=== PATIENT | female | born 1955 | race Caucasian/White ===

== ENCOUNTER 2017-03-23 08:49 | Inpatient (IN) ==
--- NOTE | 2017-03-23 09:46 | Cardiothoracic History & Phys ---
History of Present Illness Chief complaint: Chest pain History of present illness: Ms. Carrasco is a 61 year old female who was in her usual state of health until about 2 weeks ago. At that time she began to experience fairly typical symptoms of ischemic heart pain with exercise related chest discomfort and shortness of breath. She presented to [facility] were evaluation included cardiac catheterization which showed subtotal occlusion of a very large right coronary artery. Attempts at percutaneous intervention were unsuccessful and the patient was referred for bypass surgery. Left ventricular function is well preserved. Past medical history: Patient's past medical history is primarily been related to gout and osteoporosis. She also has had a question of diabetes mellitus which has been diet controlled. Otherwise she has been reasonably healthy. Family history includes history of cardiac disease on her mother side and actually her mother following heart surgery about 15 years ago. This was been done in [place] and included valvular heart surgery as well as coronary bypass. Review of systems is noncontributory to the present illness and the patient is a non-smoker. Physical examination: Patient is well-developed well-nourished white female in no acute distress. Examination of head eyes ears nose and throat show the pupils are equal and react to light and extraocular motions are intact. The oropharynx is benign. Examination of the neck shows no masses and there is no thyromegaly. There are no bruits. Examination chest is clear to percussion and auscultation. Examination of the heart shows normal sinus rhythm and there are no murmurs. Examination of the abdomen is soft and nontender and bowel sounds are normal and there are no masses or organomegaly. Examination extremities shows no cyanosis or edema. Neurological examination is grossly within normal limits. Assessment: Coronary artery disease. Plan: Coronary bypass surgery 03/27/2017.
[2017-03-23] MEDS ORDERED: GLUCAGON 1 MG VIAL IM PRN ×2 (09:47)
[2017-03-23] MEDS ORDERED: DEXTROSE 50% 25 GM/50 ML SYRINGE IV PRN (09:47)
[2017-03-23] MEDS ORDERED: DEXTROSE 50% 25 GM/50 ML VIAL IV PRN (09:47)
[2017-03-23] MEDS ORDERED: CETIRIZINE 10 MG TABLET PO PRN (09:57)
[2017-03-23] MEDS: GABAPENTIN 400 MG CAPSULE PO SCH ×2 (16:20→20:25)
[2017-03-23] MEDS: SODIUM CHLORIDE 0.9% 1,000 ML IV SCH (18:25)
[2017-03-23] MEDS: CITALOPRAM 20 MG TABLET PO SCH (20:25)
[2017-03-23] MEDS: CHLORHEXIDINE 0.12% ORAL RINSE 60 ML BOTTLE SWISH/SPIT SCH (20:26)
[2017-03-23] MEDS: ATORVASTATIN 10 MG TABLET PO SCH (20:26)
[2017-03-23] MEDS ORDERED: tiZANidine 4 MG TABLET PO PRN (21:00)
[2017-03-24 02:33] LABS: ABG Base Excess 4.6 MMOL/L (-2.5-2.5); ABG HCO3 28.5 MMOL/L (20-26); ABG Oxygen Saturation 96.1 % (95-100); ABG PCO2 44.5 MM HG (35-48); ABG PO2 81.1 MM HG (80-95)
[2017-03-24 05:02] LABS: Basophils # 0.1 10*3/uL (0.0-0.2); Basophils % 0.7 % (0.0-0.8); Eosinophils # 0.3 10*3/uL (0.0-0.87); Hematocrit 36.8 VOL% (35.7-47.0); Hemoglobin 12.5 GM/DL (12.0-16.0); Immature Granulocytes % 0.3 %; Immature Granulocytes Absolute 0.02 #; Lymphocytes # 1.3 10*3/uL (1.4-4.0); Lymphocytes % 19.1 % (21.3-54.2); Mean Corpuscular Hemoglobin 32 PG (27-34); Mean Corpuscular Volume 95.3 FL (87-102); Mean Platelet Volume 10.6 FL (9.6-12.0); Monocytes # 0.5 10*3/uL (0.11-0.8); Monocytes % 6.7 % (1.7-12.7); Neutrophils # 4.7 10*3/uL (1.4-7.4); Neutrophils % 69.2 % (38.7-73.9); Platelet Count 179 T/CUMM (130-400); Red Blood Count 3.86 MC/CUMM (3.8-5.5); Red Cell Distribution Width 11.9 % (9.3-17.3); White Blood Count 6.8 T/CUMM (4-12)
[2017-03-24 05:43] LABS: Albumin 3.1 G/DL (3.4-5.0); Bilirubin,Total 0.6 MG/DL (0.2-1.0); Calcium 8.7 MG/DL (8.5-10.1); Osmolality,Calculated 280.3 MOS/KG (273-304); Potassium 4.2 MMOL/L (3.5-5.1); Total Protein 6.4 G/DL (6.4-8.3)
--- NOTE | 2017-03-24 06:20 | Cardiothoracic Progress Note ---
Cardiothoracic Subjective Interval history: Patient is pain-free. Vital signs are stable and she is breathing comfortably. She is prepared for surgery on Monday. Exam (Progress Note) - Constitutional Vitals: Period Temp Pulse Resp BP Sys/Raya Pulse Ox Last 24 Hr 96.3 F-97.9 F 77-85 18-20 116-147/56-79 93-96 Result/EKG - Labs CBC & BMP: 03/24/17 04:44 03/24/17 04:44 Labs: Laboratory Results - last 24 hr 03/23/17 03/24/17 03/24/17 15:47 02:27 04:44 WBC 6.8 RBC 3.86 Hgb 12.5 Hct 36.8 MCV 95.3 MCH 32 MCHC 34.0 RDW 11.9 Plt Count 179 MPV 10.6 Neut % (Auto) 69.2 Lymph % (Auto) 19.1 L [place] % (Auto) 6.7 Eos % (Auto) 4.0 Baso % (Auto) 0.7 Neut # (Auto) 4.7 Lymph # (Auto) 1.3 L [place] # (Auto) 0.5 Eos # (Auto) 0.3 Baso # (Auto) 0.1 Immature Gran % 0.3 Nucleated RBC % 0.0 Immature Gran # 0.02 Nucleated RBCs # 0.00 Immature Plt Fraction 0.0 ABG pH 7.430 ABG pCO2 44.5 ABG pO2 81.1 ABG HCO3 28.5 H ABG Total CO2 26.0 ABG O2 Saturation 96.1 ABG Base Excess 4.6 H Sodium Potassium Chloride Carbon Dioxide Anion Gap BUN Creatinine GFR Calculation BUN/Creatinine Ratio Glucose POC Glucose 74 Calculated Osmolality Calcium Total Bilirubin AST ALT Alkaline Phosphatase Total Protein Albumin Globulin Albumin/Globulin Ratio 03/24/17 04:44 WBC RBC Hgb Hct MCV MCH MCHC RDW Plt Count MPV Neut % (Auto) Lymph % (Auto) [place] % (Auto) Eos % (Auto) Baso % (Auto) Neut # (Auto) Lymph # (Auto) [place] # (Auto) Eos # (Auto) Baso # (Auto) Immature Gran % Nucleated RBC % Immature Gran # Nucleated RBCs # Immature Plt Fraction ABG pH ABG pCO2 ABG pO2 ABG HCO3 ABG Total CO2 ABG O2 Saturation ABG Base Excess Sodium 141 Potassium 4.2 Chloride 105 Carbon Dioxide 30 Anion Gap 10.2 BUN 11 Creatinine 0.50 L GFR Calculation 135 BUN/Creatinine Ratio 22.00 H Glucose 115 H POC Glucose Calculated Osmolality 280.3 Calcium 8.7 Total Bilirubin 0.60 AST 23 ALT 20 Alkaline Phosphatase 105 Total Protein 6.4 Albumin 3.1 L Globulin 3.3 Albumin/Globulin Ratio 0.9 L
[2017-03-24] MEDS: LEVOTHYROXINE 88 MCG TABLET PO SCH (06:26)
--- NOTE | 2017-03-24 07:28 | Order Completion Report ---
See report scanned to EMR
[2017-03-24] MEDS: MORPHINE ER 30 MG TABLET PO SCH ×2 (07:51→15:15)
--- NOTE | 2017-03-24 09:11 | XRay Report ---
XR chest 2V Date: 03/24/2017 4:00 AM History: Coronary artery disease Comparison: None Technique: PA and lateral chest Findings: The heart is normal in size with arterial calcifications. Calcified granulomata/nodes with minimal atelectasis at the lung bases and small cardiac fat pads. Unremarkable mediastinum with degenerative changes. Impression: Evidence of old granulomatous disease with probable chronic scarring and minimal atelectasis. No definite acute cardiopulmonary pathology identified. PROCEDURE INTERPRETED AT [facility] DEPARTMENT OF RADIOLOGY Final Report Signed by: Dr. Rosmery Segovia
[2017-03-24] MEDS: ASPIRIN EC 81 MG TABLET PO SCH (09:39)
[2017-03-24] MEDS: DOCUSATE SODIUM 100 MG CAPSULE PO SCH (09:39)
[2017-03-24] MEDS: METOPROLOL TARTRATE 25 MG TABLET PO SCH (09:40)
[2017-03-24] MEDS: LISINOPRIL 10 MG TABLET PO SCH (09:40)
[2017-03-24] MEDS: GABAPENTIN 400 MG CAPSULE PO SCH ×4 (09:40→20:52)
[2017-03-24] MEDS: ALLOPURINOL 100 MG TABLET PO SCH (09:40)
[2017-03-24] MEDS: ENOXAPARIN 40 MG/0.4 ML SYRINGE SUBCUT SCH (09:41)
[2017-03-24] MEDS: CHLORHEXIDINE 0.12% ORAL RINSE 60 ML BOTTLE SWISH/SPIT SCH ×2 (09:45→22:47)
[2017-03-24] MEDS: ACETAMINOPHEN 325 MG TABLET PO PRN (14:17)
[2017-03-24] MEDS: CITALOPRAM 20 MG TABLET PO SCH (20:52)
[2017-03-24] MEDS: ATORVASTATIN 10 MG TABLET PO SCH (20:52)
[2017-03-25] MEDS: CHLORHEXIDINE 4% SOLN 118 ML BOTTLE TOP SCH ×3 (01:59→16:53)
[2017-03-25] MEDS: SODIUM CHLORIDE 0.9% 1,000 ML IV SCH ×2 (01:59→17:48)
[2017-03-25] MEDS: MORPHINE ER 30 MG TABLET PO SCH ×4 (02:01→22:37)
[2017-03-25] MEDS: LEVOTHYROXINE 88 MCG TABLET PO SCH (07:40)
[2017-03-25] MEDS: ASPIRIN EC 81 MG TABLET PO SCH (08:15)
[2017-03-25] MEDS: ACETAMINOPHEN 325 MG TABLET PO PRN ×3 (08:15→20:54)
[2017-03-25] MEDS: METOPROLOL TARTRATE 25 MG TABLET PO SCH (08:15)
[2017-03-25] MEDS: DOCUSATE SODIUM 100 MG CAPSULE PO SCH (08:15)
[2017-03-25] MEDS: ENOXAPARIN 40 MG/0.4 ML SYRINGE SUBCUT SCH (08:15)
[2017-03-25] MEDS: ALLOPURINOL 100 MG TABLET PO SCH (08:16)
[2017-03-25] MEDS: LISINOPRIL 10 MG TABLET PO SCH (08:16)
[2017-03-25] MEDS: GABAPENTIN 400 MG CAPSULE PO SCH ×4 (08:16→20:55)
[2017-03-25] MEDS: CHLORHEXIDINE 0.12% ORAL RINSE 60 ML BOTTLE SWISH/SPIT SCH ×2 (12:28→20:56)
[2017-03-25] MEDS: CITALOPRAM 20 MG TABLET PO SCH (20:55)
[2017-03-25] MEDS: ATORVASTATIN 10 MG TABLET PO SCH (20:55)
[2017-03-26] MEDS: MORPHINE ER 30 MG TABLET PO SCH ×3 (06:25→21:48)
[2017-03-26] MEDS: LEVOTHYROXINE 88 MCG TABLET PO SCH (06:25)
--- NOTE | 2017-03-26 08:34 | Cardiothoracic Progress Note ---
Cardiothoracic Subjective Interval history: Patient is ready for surgery in the morning. Exam (Progress Note) - Constitutional Vitals: Period Temp Pulse Resp BP Sys/Raya Pulse Ox Last 24 Hr 97.3 F-98.6 F 63-87 18-20 114-150/58-75 93-96 Result/EKG - Labs CBC & BMP: 03/24/17 04:44 03/24/17 04:44
[2017-03-26] MEDS: DOCUSATE SODIUM 100 MG CAPSULE PO SCH (08:59)
[2017-03-26] MEDS: METOPROLOL TARTRATE 25 MG TABLET PO SCH (09:00)
[2017-03-26] MEDS: LISINOPRIL 10 MG TABLET PO SCH (09:00)
[2017-03-26] MEDS: ASPIRIN EC 81 MG TABLET PO SCH (09:00)
[2017-03-26] MEDS: ALLOPURINOL 100 MG TABLET PO SCH (09:00)
[2017-03-26] MEDS: GABAPENTIN 400 MG CAPSULE PO SCH ×4 (09:00→21:08)
[2017-03-26] MEDS: CHLORHEXIDINE 0.12% ORAL RINSE 60 ML BOTTLE SWISH/SPIT SCH ×2 (09:01→21:07)
[2017-03-26] MEDS: CHLORHEXIDINE 4% SOLN 118 ML BOTTLE TOP SCH ×3 (10:47→21:07)
[2017-03-26] MEDS: SODIUM CHLORIDE 0.9% 1,000 ML IV SCH (18:15)
[2017-03-26] MEDS ORDERED: LORazepam 1 MG TABLET PO ONE (18:27)
[2017-03-26] MEDS: CITALOPRAM 20 MG TABLET PO SCH (21:07)
[2017-03-26] MEDS: ATORVASTATIN 10 MG TABLET PO SCH (21:08)
[2017-03-27 03:54] LABS: ABG Base Excess 0.9 MMOL/L (-2.5-2.5); ABG HCO3 25.1 MMOL/L (20-26); ABG Oxygen Saturation 95.5 % (95-100); ABG PCO2 42.8 MM HG (35-48); ABG PH 7.392 (7.35-7.45); ABG PO2 82.2 MM HG (80-95); ABG TCO2 22.9 MMOL/L (23-27); Allen Test Positive; Pt O2 Delivery Device Room Air
[2017-03-27] MEDS: CHLORHEXIDINE 4% SOLN 118 ML BOTTLE TOP SCH ×2 (04:30→12:32)
[2017-03-27] MEDS ORDERED: PAPAVERINE 60 MG/2 ML VIAL ONE (04:44)
[2017-03-27] MEDS ORDERED: VANCOMYCIN 1,000 MG VIAL ONE (04:45)
[2017-03-27] MEDS ORDERED: VANCOMYCIN INJ 1,000 MG in SODIUM CHLORIDE 0.9% 250 ML IV ONE (05:30)
[2017-03-27] MEDS ORDERED: LORazepam 1 MG TABLET PO ONE (05:30)
[2017-03-27] MEDS ORDERED: FAMOTIDINE 20 MG TABLET PO ONE (05:30)
[2017-03-27] MEDS: LEVOTHYROXINE 88 MCG TABLET PO SCH ×2 (05:34→12:33)
[2017-03-27] MEDS: METOPROLOL TARTRATE 25 MG TABLET PO SCH ×2 (05:35→12:32)
[2017-03-27] MEDS: LISINOPRIL 10 MG TABLET PO SCH ×2 (05:36→12:31)
[2017-03-27] MEDS: GABAPENTIN 400 MG CAPSULE PO SCH ×2 (05:37→12:32)
[2017-03-27] MEDS: ALLOPURINOL 100 MG TABLET PO SCH ×2 (05:37→12:31)
[2017-03-27 05:51] LABS: Basophils # 0.1 10*3/uL (0.0-0.2); Basophils % 0.6 % (0.0-0.8); Eosinophils # 0.3 10*3/uL (0.0-0.87); Eosinophils % 3.2 % (0.00-10.9); Hematocrit 36.7 VOL% (35.7-47.0); Hemoglobin 12.5 GM/DL (12.0-16.0); Immature Granulocytes % 0.4 %; Immature Granulocytes Absolute 0.04 #; Lymphocytes # 2.1 10*3/uL (1.4-4.0); Lymphocytes % 21.2 % (21.3-54.2); Mean Corpuscular HGB Conc 34.1 GM/DL (32-36); Mean Corpuscular Hemoglobin 33 PG (27-34); Mean Corpuscular Volume 95.6 FL (87-102); Mean Platelet Volume 10.5 FL (9.6-12.0); Monocytes # 0.8 10*3/uL (0.11-0.8); Monocytes % 7.9 % (1.7-12.7); Neutrophils # 6.5 10*3/uL (1.4-7.4); Neutrophils % 66.7 % (38.7-73.9); Platelet Count 194 T/CUMM (130-400); Red Blood Count 3.84 MC/CUMM (3.8-5.5); Red Cell Distribution Width 11.9 % (9.3-17.3); White Blood Count 9.7 T/CUMM (4-12)
[2017-03-27 05:58] LABS: INR 1.1; PT Patient Result 11.4 SECS; Partial Thromboplastin Time 29.5 SECS (0-40)
[2017-03-27 06:19] LABS: Calcium 8.9 MG/DL (8.5-10.1); Magnesium 1.9 MG/DL (1.8-2.4); Osmolality,Calculated 280.5 MOS/KG (273-304); Potassium 3.6 MMOL/L (3.5-5.1)
[2017-03-27] MEDS ORDERED: CEFUROXIME INJ 1,500 MG in SODIUM CHLORIDE 0.9% 100 ML IV ONE (06:30)
[2017-03-27] MEDS ORDERED: CALCIUM CHLORIDE 1,000 MG/10 ML SYRINGE IV ONE ×2 (06:40→08:22)
[2017-03-27] MEDS ORDERED: AMINOCAPROIC ACID 5,000 MG/20 ML VIAL IV ONE (06:40)
[2017-03-27] MEDS ORDERED: VECURONIUM 10 MG VIAL IV ONE (06:40)
[2017-03-27] MEDS ORDERED: PHENYLEPHRINE 50 MG/5 ML VIAL ONE (06:40)
[2017-03-27 07:29] LABS: ABG HCO3 23.6 MMOL/L (20-26); ABG Oxygen Saturation 99.7 % (95-100); ABG PCO2 38.9 MM HG (35-48); ABG PH 7.393 (7.35-7.45); ABG TCO2 20.9 MMOL/L (23-27); Glucose Heart Surgery 112 MG/DL (74-106); Hematocrit Heart Surgery 37.7 PERCENT (37-47); Hemoglobin Heart Surgery 12.2 G/DL (12.0-16.0); Ionized Calcium Arterial 1.15 MMOL/L (1.21-1.46); PCO2 Patient Temp Arterial 38.9 MMHG; PH Patient Temp Arterial 7.393; Patient Temperature 37 CELCIUS; Potassium Heart/CVR 3.7 MMOL/L (3.5-5.1); Sodium Heart/CVR 139 MMOL/L (135-145)
[2017-03-27 08:15] LABS: Apearance,Urine Slightly Hazy (Clear); Bilirubin,Urine Negative (Negative); Blood, Urine Negative (Negative); Glucose,Urine (UA) Negative (Negative); Hyaline Casts,Urine 4 /LPF (0-3); Ketones,Urine 5 mg/dL (Negative); Mucus,Urine Occasional /LPF (Occasional); Nitrite,Urine Negative (Negative); Protein,Urine Negative; RBC,Urine 1 /HPF (0-4); Squamous Epithelial Cell,Urine Occasional /HPF (0-10); Urine Color Yellow (Yellow); Urine Urobilinogen < 2.0 EU/DL (0.2-1.0); WBC,Urine 1 /HPF (0-6)
[2017-03-27] MEDS ORDERED: PHENYLEPHRINE DRIP 40 MG/250 ML PREMIX IV ONE (08:22)
[2017-03-27] MEDS ORDERED: NITROPRUSSIDE 50 MG/2 ML VIAL ONE (08:22)
[2017-03-27] MEDS ORDERED: POTASSIUM CHLORIDE RIDER 100 ML IV ONE (08:22)
[2017-03-27] MEDS ORDERED: ALBUMIN 5% 12.5 GM/250 ML VIAL IV ONE (08:24)
[2017-03-27] MEDS ORDERED: SODIUM BICARBONATE 50 MEQ/50 ML SYRINGE IV ONE ×2 (08:24→09:26)
[2017-03-27] MEDS ORDERED: LIDOCAINE 100 MG/5 ML SYRINGE ONE (08:24)
[2017-03-27] MEDS ORDERED: EPINEPHrine 1 MG/10 ML SYRINGE ONE (08:24)
[2017-03-27 08:34] LABS: Hemoglobin Heart Surgery 7.3 G/DL (12.0-16.0); PCO2 Patient Temp Venous 37.5 MM HG; PH Patient Temp Venous 7.432; PO2 Patient Temp Venous 37.8 MM HG; VBG HCO3 25.1 MEQ/L (24-28); VBG Oxygen Saturation 76.8 %; VBG PCO2 41.3 MMHG (41-51); VBG PH 7.403; VBG PO2 43.4 MMHG (17-40)
[2017-03-27 09:24] LABS: ABG Base Excess -1.1 MMOL/L (-2.5-2.5); ABG HCO3 23.5 MMOL/L (20-26); ABG Oxygen Saturation 99.9 % (95-100); ABG PCO2 34.4 MM HG (35-48); ABG PH 7.428 (7.35-7.45); ABG TCO2 20.9 MMOL/L (23-27); Glucose Heart Surgery 219 MG/DL (74-106); Hematocrit Heart Surgery 27.6 PERCENT (37-47); Hemoglobin Heart Surgery 8.9 G/DL (12.0-16.0); Ionized Calcium Arterial 1.25 MMOL/L (1.21-1.46); PCO2 Patient Temp Arterial 34.4 MMHG; PH Patient Temp Arterial 7.428; Patient Temperature 37 CELCIUS; Potassium Heart/CVR 4.6 MMOL/L (3.5-5.1); Sodium Heart/CVR 133 MMOL/L (135-145)
[2017-03-27] MEDS ORDERED: PROTAMINE SULFATE 250 MG/25 ML VIAL IV ONE (09:26)
[2017-03-27] MEDS ORDERED: PHENYLEPHRINE DRIP 20 MG/250 ML PREMIX IV ONE (09:26)
[2017-03-27] MEDS ORDERED: DEXTROSE 5% KCL 20 MEQ 20 MEQ/1,000 ML BAG IV ONE (09:26)
[2017-03-27] MEDS ORDERED: ALBUMIN 25% 25 GM/100 ML VIAL IV ONE (09:26)
[2017-03-27] MEDS ORDERED: methylPREDNISolone SOD SUC 1,000 MG/8 ML VIAL ONE (09:27)
[2017-03-27] MEDS ORDERED: MAGNESIUM SULFATE 1 GM/2 ML VIAL ONE (09:27)
[2017-03-27] MEDS ORDERED: PROTAMINE SULFATE 50 MG/5 ML VIAL IV ONE ×2 (09:27→09:58)
[2017-03-27] MEDS ORDERED: FUROSEMIDE 20 MG/2 ML VIAL ONE (09:27)
[2017-03-27] MEDS ORDERED: POTASSIUM CHLORIDE 20 MEQ/10 ML VIAL ONE (09:27)
[2017-03-27] MEDS ORDERED: HEPARIN 10,000 UNIT/10 ML VIAL ONE (09:27)
[2017-03-27] MEDS ORDERED: MANNITOL 12.5 GM/50 ML VIAL IV ONE (09:27)
--- NOTE | 2017-03-27 10:05 | Operative Note ---
Date of procedure: 03/27/17 Pre-op diagnosis: Coronary artery disease Post-op diagnosis: same Procedure: Procedure: Coronary bypass grafting 1 with saphenous vein graft to the right posterior descending coronary artery. Findings: Patient is a 61-year-old lady who was found to [facility] to have critical stenosis of the right coronary artery. Attempted percutaneous angioplasty was unsuccessful. Patient was referred for bypass surgery. The time of surgery left ventricular function was noted to be normal in the right posterior descending coronary artery was a very large artery with some disease at the site of anastomosis. Saphenous vein graft was placed to the artery and the patient tolerated the procedure well and was returned to recovery in satisfactory condition. Procedure: Patient brought the operating room placed on the operating table in the supine position. After satisfactory induction of general anesthesia the chest abdomen and legs were prepped and draped in sterile fashion. Greater saphenous vein was harvested from the left lower leg and prepared as an arterial graft. Incision in the leg was closed with 3-0 silk continuous Monocryl and skin max. A standard sternotomy incision was made and the sternum was divided and the heart suspended in pericardial cradle. Patient was prepared for cardiopulmonary bypass with systemic heparinization cannulation of the ascending aorta and right atrium. Cardiopulmonary bypass was begun and aorta was crossclamped and the heart arrested with cardioplegia solution injected into the aortic root. Heart was protected during the period of crossclamping with topical saline slush. Distal anastomosis was constructed as noted above and then the aorta was unclamped reestablishing cardiac action. Proximal anastomosis was confirmed constructed between the inflow end of the saphenous vein graft and the ascending aorta. Following this the patient was weaned from cardiopulmonary bypass without difficulty and the heparin effect reversed with protamine. Decannulation was carried out and the defects in the ascending aorta and right atrium closed with 3-0 Prolene. Operative field was inspected for hemostasis and this was considered adequate the incision was closed with interrupted stainless steel wire and the sternum 0 Monocryl in the presternal fascia and 3-0 subcuticular Monocryl. 2 chest tubes were left in the anterior mediastinum and brought out through separate stab incisions. Sterile dressings were applied the patient was returned to recovery in satisfactory condition. Anesthesia: GETA Surgeon / Physician: Howie Brambila Estimated blood loss: other (Unable to determine because of cardiopulmonary bypass) Condition: stable Disposition: ICU Results - Labs CBC & BMP: 10/02/17 09:20 03/27/17 05:36 Discharge Plan - Discharge Medications No Action Allopurinol 100 mg PO DAILY Levothyroxine Tab [Synthroid Tab] 44 mcg PO DAILY@0700 Morphine ER Tab [Ms Contin] 30 mg PO TID Cetirizine HCl [ZyrTEC Cap] 10 mg PO DAILY Cholecalciferol (Vitamin D3) [Vitamin D3] 2,000 unit PO DAILY Multivitamin [Multivitamins] 1 each PO DAILY Docusate Sodium [Colace Clear] 50 mg PO BID Citalopram [CeleXA] 10 mg PO BEDTIME Tizanidine HCl [Zanaflex] 2 mg PO BEDTIME PRN PRN Reason: pain diphenhydrAMINE CAP [Benadryl Cap] 25 mg PO BEDTIME PRN PRN Reason: cramp Lisinopril 20 mg PO DAILY Gabapentin Cap/Tab [Neurontin Cap/Tab] 600 mg PO QID Aspirin 81 mg PO DAILY Lovastatin 20 mg PO BEDTIME - Follow Up or Referral - Forms/Instructions
[2017-03-27] MEDS ORDERED: SUFentanil 250 MCG/5 ML AMP ONE ×2 (10:07→10:08)
[2017-03-27] MEDS ORDERED: SEVOFLURANE 1 UNIT/15 MINUTE INH ONE (10:07)
[2017-03-27] MEDS ORDERED: ACETAMINOPHEN 650 MG SUPP RECTAL PRN (10:08)
[2017-03-27] MEDS ORDERED: MIDAZOLAM 2 MG/2 ML VIAL IV PRN (10:08)
[2017-03-27] MEDS ORDERED: MORPHINE 10 MG/1 ML VIAL IV PRN (10:08)
[2017-03-27] MEDS ORDERED: LACTATED RINGERS 1,000 ML IV ONE (10:08)
[2017-03-27] MEDS ORDERED: MIDAZOLAM 10 MG/2 ML VIAL IV PRN (10:08)
[2017-03-27] MEDS ORDERED: POTASSIUM CHLORIDE RIDER 20 MEQ in PREMIX 1 EACH IV PRN (10:08)
[2017-03-27] MEDS ORDERED: MAGNESIUM SULF RIDER 4 GM in PREMIX 1 EACH IV PRN (10:08)
[2017-03-27] MEDS ORDERED: POTASSIUM CHLORIDE RIDER 10 MEQ in PREMIX 1 EACH IV PRN (10:08)
[2017-03-27] MEDS ORDERED: VECURONIUM 10 MG VIAL IV PRN ×2 (10:08)
[2017-03-27] MEDS ORDERED: PHENYLEPHRINE DRIP 40 MG/250 ML PREMIX IV PRN (10:08)
[2017-03-27] MEDS ORDERED: MIDAZOLAM 10 MG/2 ML VIAL ONE ×2 (10:08)
[2017-03-27] MEDS ORDERED: INSULIN REGULAR 100 UNIT/ML IV PRN (10:08)
[2017-03-27] MEDS ORDERED: NITROPRUSSIDE 100 MG in DEXTROSE 5% 250 ML IV PRN (10:08)
[2017-03-27] MEDS ORDERED: SODIUM CHLORIDE 0.9% 100 ML IV ONE (10:08)
[2017-03-27] MEDS ORDERED: SODIUM CHLORIDE 0.9% 250 ML IV ONE (10:08)
[2017-03-27] MEDS ORDERED: MAGNESIUM SULF RIDER 2 GM in PREMIX 1 EACH IV PRN (10:08)
[2017-03-27] MEDS ORDERED: LACTATED RINGERS 250 ML IV PRN (10:08)
[2017-03-27] MEDS ORDERED: SODIUM CHLORIDE 0.9% 1,000 ML IV ONE (10:08)
[2017-03-27] MEDS ORDERED: CALCIUM CHLORIDE 1,000 MG/10 ML SYRINGE IV PRN (10:08)
[2017-03-27] MEDS ORDERED: ONDANSETRON 4 MG/2 ML VIAL IV PRN (10:08)
[2017-03-27] MEDS ORDERED: DEXTROSE 50% 25 GM/50 ML SYRINGE IV PRN ×2 (10:08)
[2017-03-27] MEDS ORDERED: INSULIN REGULAR 100 UNIT/ML IV ONE (10:08)
[2017-03-27] MEDS: SODIUM CHLORIDE 0.45% 1,000 ML IV SCH ×2 (10:28)
[2017-03-27] MEDS: INSULIN REGULAR DRIP 100 ML IV SCH (10:40)
[2017-03-27] MEDS: KETOROLAC 30 MG/1 ML VIAL IV SCH ×3 (10:47→21:35)
[2017-03-27 10:52] LABS: ABG Base Excess 0.4 MMOL/L (-2.5-2.5); ABG HCO3 24.3 MMOL/L (20-26); ABG Oxygen Saturation 98.4 % (95-100); ABG PCO2 36.7 MM HG (35-48); ABG PH 7.439 (7.35-7.45); ABG PO2 163.4 MM HG (80-95); ABG TCO2 25.4 MMOL/L (23-27); Potassium Heart/CVR 4.2 MMOL/L (3.5-5.1)
[2017-03-27 10:53] LABS: Glucose Heart Surgery 153 MG/DL (74-106); Hemoglobin Heart Surgery 11.1 G/DL (12.0-16.0)
[2017-03-27 10:54] LABS: Basophils % 0.3 % (0.0-0.8); Eosinophils # 0.1 10*3/uL (0.0-0.87); Eosinophils % 0.7 % (0.00-10.9); Hematocrit 30.5 VOL% (35.7-47.0); Hemoglobin 10.8 GM/DL (12.0-16.0); Immature Granulocytes % 0.8 %; Lymphocytes # 1.4 10*3/uL (1.4-4.0); Lymphocytes % 11.1 % (21.3-54.2); Mean Corpuscular HGB Conc 35.4 GM/DL (32-36); Mean Corpuscular Hemoglobin 34 PG (27-34); Mean Corpuscular Volume 95.3 FL (87-102); Mean Platelet Volume 10.8 FL (9.6-12.0); Monocytes # 0.7 10*3/uL (0.11-0.8); Monocytes % 5.8 % (1.7-12.7); Neutrophils % 81.3 % (38.7-73.9); Platelet Count 179 T/CUMM (130-400); White Blood Count 12.4 T/CUMM (4-12)
[2017-03-27 11:03] LABS: INR 1.3; PT Patient Result 13.4 SECS
--- NOTE | 2017-03-27 11:13 | Operative Note ---
Date of procedure: 03/27/17 Procedure: [place] of the left great saphenous vein for coronary artery bypass graft. I made an incision anterior to the left medial malleolus all the way up to mid leg. I dissected down all the way to the great saphenous vein. Circumferential dissection was carried out and all the branches were clipped. I obtained a graft for the bypass and hemostasis was achieved. The subcutaneous tissue was closed using PDS. The rest of the CABG procedure is dictated by Dr. Brambila. Surgeon / Physician: Flor Jansen Estimated blood loss: minimal Results - Labs CBC & BMP: 03/27/17 10:36 03/27/17 05:36 Discharge Plan - Discharge Medications No Action Allopurinol 100 mg PO DAILY Levothyroxine Tab [Synthroid Tab] 44 mcg PO DAILY@0700 Morphine ER Tab [Ms Contin] 30 mg PO TID Cetirizine HCl [ZyrTEC Cap] 10 mg PO DAILY Cholecalciferol (Vitamin D3) [Vitamin D3] 2,000 unit PO DAILY Multivitamin [Multivitamins] 1 each PO DAILY Docusate Sodium [Colace Clear] 50 mg PO BID Citalopram [CeleXA] 10 mg PO BEDTIME Tizanidine HCl [Zanaflex] 2 mg PO BEDTIME PRN PRN Reason: pain diphenhydrAMINE CAP [Benadryl Cap] 25 mg PO BEDTIME PRN PRN Reason: cramp Lisinopril 20 mg PO DAILY Gabapentin Cap/Tab [Neurontin Cap/Tab] 600 mg PO QID Aspirin 81 mg PO DAILY Lovastatin 20 mg PO BEDTIME - Follow Up or Referral - Forms/Instructions
--- NOTE | 2017-03-27 11:22 | XRay Report ---
XR chest 1V portable Indication: Surgery, line placement Comparison: and February 2017 Findings: The heart and mediastinum are stable in size and configuration post cardiac surgery. Support structures appear in good position. The pulmonary vascularity is slightly increased. There is small amount of left lower lung airspace density. No other lung infiltrates, effusions, pneumothorax or other abnormality is demonstrated. Impression: Interval cardiac surgery with support structures as described above. Small amount of left lower lung density may indicate atelectasis. PROCEDURE INTERPRETED AT [facility] DEPARTMENT OF RADIOLOGY Final Report Signed by: Dr. Senthil Rodriguez
[2017-03-27 11:27] LABS: Albumin 3.1 G/DL (3.4-5.0); Bilirubin,Total 0.9 MG/DL (0.2-1.0); Calcium 9.6 MG/DL (8.5-10.1); Magnesium 1.9 MG/DL (1.8-2.4); Osmolality,Calculated 279.7 MOS/KG (273-304); Potassium 4.4 MMOL/L (3.5-5.1); Total Protein 5.9 G/DL (6.4-8.3)
[2017-03-27 11:31] LABS: CKMB % 6.6 %
[2017-03-27 11:37] LABS: ABG HCO3 23.8 MMOL/L (20-26); ABG Oxygen Saturation 97.8 % (95-100); ABG PCO2 35.8 MM HG (35-48); ABG PH 7.441 (7.35-7.45); ABG PO2 117.9 MM HG (80-95); ABG TCO2 24.9 MMOL/L (23-27); Glucose Heart Surgery 135 MG/DL (74-106); Hemoglobin Heart Surgery 11.2 G/DL (12.0-16.0); Potassium Heart/CVR 4.6 MMOL/L (3.5-5.1)
[2017-03-27 11:39] LABS: Troponin I Only 1.52 NG/ML (0.00-0.045)
[2017-03-27] MEDS: MORPHINE 2 MG/1 ML SYRINGE IV PRN (11:51)
[2017-03-27] MEDS: LACTATED RINGERS 1,000 ML IV PRN ×4 (12:00→19:11)
[2017-03-27] MEDS: CHLORHEXIDINE 0.12% ORAL RINSE 60 ML BOTTLE SWISH/SPIT SCH ×2 (12:32→21:32)
[2017-03-27] MEDS: DOCUSATE SODIUM 100 MG CAPSULE PO SCH (12:33)
[2017-03-27] MEDS: MORPHINE ER 30 MG TABLET PO SCH (12:33)
[2017-03-27] MEDS: ASPIRIN EC 81 MG TABLET PO SCH (12:33)
[2017-03-27 12:35] LABS: ABG HCO3 23.5 MMOL/L (20-26); ABG Oxygen Saturation 97.6 % (95-100); ABG PCO2 36.5 MM HG (35-48); ABG PH 7.411 (7.35-7.45); ABG PO2 94.9 MM HG (80-95); ABG TCO2 21.1 MMOL/L (23-27); Glucose Heart Surgery 140 MG/DL (74-106); Hematocrit Heart Surgery 31.1 PERCENT (37-47); Hemoglobin Heart Surgery 10.1 G/DL (12.0-16.0); Potassium Heart/CVR 4.4 MMOL/L (3.5-5.1)
[2017-03-27] MEDS: ALBUMIN 5% 12.5 GM in PREMIX 1 EACH IV PRN ×3 (12:56→15:11)
--- NOTE | 2017-03-27 13:06 | Physician Query Form ---
CLICK EDIT DOCUMENT TO SELECT QUERY ANSWER --> OK --> SIGN Onelia Rascon RN Clinical Supervisor [employer] W) [phone] (f) [phone] [email or web address]: Make your selection(s) from the choices in EACH section by typing an "x" and enter comments in the comment section. Please use your independent medical judgment in providing your response. This request does not imply that any particular answer is desired or expected. CLINICAL INDICATORS: (Providers should not edit this section) Height: 5ft 6in Weight: 252 lbs [employer]ing [employer] BMI: 42.0 Manager Company Notes: Class 3 Obesity [employer] Recommendations: Provided Mediterranean Diet Guidelines. 1600 kcals If applicable, please provide an associated diagnosis related to the abnormal BMI: BMI of 40 or greater: ( ) Overweight ( ) Obesity ( x) Morbid//Severe Obesity ( ) Obesity with Alveolar Hypoventilation ( ) Weight Gain ( ) BMI is not significant ( ) Other, please specify: ( ) Clinically unable to determine COMMENTS: PLEASE ALSO DOCUMENT RESPONSE IN PROGRESS NOTES AND/OR DISCHARGE SUMMARY Use of terms such as suspected, likely, or probable (associated with a specific diagnosis that is being evaluated, monitored, or treated as if it exists) are acceptable and can be restated in the discharge summary if not ruled out. MTDD
[2017-03-27 18:24] LABS: ABG Base Excess -1.8 MMOL/L (-2.5-2.5); ABG HCO3 22.9 MMOL/L (20-26); ABG Oxygen Saturation 98.4 % (95-100); ABG PCO2 37.3 MM HG (35-48); ABG PH 7.393 (7.35-7.45); Glucose Heart Surgery 133 MG/DL (74-106); Hematocrit Heart Surgery 27.2 PERCENT (37-47); Hemoglobin Heart Surgery 8.8 G/DL (12.0-16.0); Potassium Heart/CVR 4.7 MMOL/L (3.5-5.1)
[2017-03-27] MEDS ORDERED: FUROSEMIDE 40 MG/4 ML VIAL IV ONE (18:55)
[2017-03-27] MEDS ORDERED: FUROSEMIDE 40 MG/4 ML VIAL ONE (18:58)
[2017-03-27 19:09] LABS: Troponin I Only 1.6 NG/ML (0.00-0.045)
[2017-03-27] MEDS: VANCOMYCIN INJ 1,000 MG in SODIUM CHLORIDE 0.9% 250 ML IV SCH (21:34)
[2017-03-28] MEDS: MORPHINE 2 MG/1 ML SYRINGE IV PRN ×2 (01:36→08:45)
[2017-03-28] MEDS ORDERED: FUROSEMIDE 40 MG/4 ML VIAL IV ONE (01:43)
[2017-03-28 01:55] LABS: ABG Base Excess -3.1 MMOL/L (-2.5-2.5); ABG HCO3 21.8 MMOL/L (20-26); ABG Oxygen Saturation 93.1 % (95-100); ABG PCO2 37.8 MM HG (35-48); ABG PH 7.369 (7.35-7.45); ABG PO2 71.1 MM HG (80-95); ABG TCO2 19.9 MMOL/L (23-27); Glucose Heart Surgery 137 MG/DL (74-106); Hematocrit Heart Surgery 31.5 PERCENT (37-47); Hemoglobin Heart Surgery 10.2 G/DL (12.0-16.0); Potassium Heart/CVR 4.3 MMOL/L (3.5-5.1)
[2017-03-28 04:18] LABS: ABG Base Excess -1.8 MMOL/L (-2.5-2.5); ABG HCO3 22.9 MMOL/L (20-26); ABG Oxygen Saturation 99.3 % (95-100); ABG PH 7.388 (7.35-7.45); ABG TCO2 20.8 MMOL/L (23-27); Glucose Heart Surgery 126 MG/DL (74-106); Hematocrit Heart Surgery 30.6 PERCENT (37-47); Hemoglobin Heart Surgery 9.9 G/DL (12.0-16.0)
[2017-03-28 04:25] LABS: Basophils % 0.1 % (0.0-0.8); Hematocrit 28.9 VOL% (35.7-47.0); Immature Granulocytes % 0.6 %; Immature Granulocytes Absolute 0.07 #; Lymphocytes # 0.8 10*3/uL (1.4-4.0); Lymphocytes % 6.2 % (21.3-54.2); Mean Corpuscular HGB Conc 34.6 GM/DL (32-36); Mean Corpuscular Hemoglobin 33 PG (27-34); Mean Corpuscular Volume 95.1 FL (87-102); Mean Platelet Volume 11.1 FL (9.6-12.0); Monocytes # 0.3 10*3/uL (0.11-0.8); Monocytes % 2.6 % (1.7-12.7); Neutrophils # 11.5 10*3/uL (1.4-7.4); Neutrophils % 90.5 % (38.7-73.9); Platelet Count 137 T/CUMM (130-400); Red Blood Count 3.04 MC/CUMM (3.8-5.5); Red Cell Distribution Width 12.7 % (9.3-17.3); White Blood Count 12.7 T/CUMM (4-12)
[2017-03-28] MEDS: KETOROLAC 30 MG/1 ML VIAL IV SCH ×3 (04:28→16:00)
--- NOTE | 2017-03-28 04:40 | Order Completion Report ---
See report scanned to EMR
[2017-03-28 04:52] LABS: Albumin 3.4 G/DL (3.4-5.0); Bilirubin,Direct 0.16 MG/DL (0.0-0.20); Bilirubin,Total 0.4 MG/DL (0.2-1.0); CKMB % 4.4 %; Calcium 8.9 MG/DL (8.5-10.1); Magnesium 1.8 MG/DL (1.8-2.4); Osmolality,Calculated 283.4 MOS/KG (273-304); Potassium 4.1 MMOL/L (3.5-5.1); Total Protein 5.7 G/DL (6.4-8.3); Troponin I Only 0.983 NG/ML (0.00-0.045)
[2017-03-28 05:42] LABS: ABG Base Excess -2.6 MMOL/L (-2.5-2.5); ABG HCO3 22.3 MMOL/L (20-26); ABG PCO2 38.8 MM HG (35-48); ABG PH 7.369 (7.35-7.45); ABG TCO2 20.5 MMOL/L (23-27)
--- NOTE | 2017-03-28 06:31 | Cardiothoracic Progress Note ---
Cardiothoracic Subjective Interval history: Patient is awake and alert and responsive but remains intubated. She has been sleeping through the night but it appears this morning as if she probably will be able to be weaned from the ventilator without difficulty. Her vital signs have been stable and she has maintained normal sinus rhythm. Blood pressure also has been stable and cardiac enzymes are within normal limits for postoperative day 1. Blood gases are satisfactory and urine output has been good with a creatinine in the normal range. Chest tube output is minimal and her chest tubes have been removed. Hopefully she can be weaned from the ventilator fairly soon this morning and perhaps transferred to telemetry later today. Exam (Progress Note) - Constitutional Vitals: Period Temp Pulse Resp BP Sys/Raya Pulse Ox Last 24 Hr 97.7 F-99.0 F 64-81 10-13 88-154/46-90 96-100 Result/EKG - Labs CBC & BMP: 03/28/17 04:00 03/28/17 04:00 Labs: Laboratory Results - last 24 hr 03/26/17 03/27/17 03/27/17 10:31 07:00 07:19 WBC RBC Hgb Hct MCV MCH MCHC RDW Plt Count 204 MPV Neut % (Auto) Lymph % (Auto) Simpson % (Auto) Eos % (Auto) Baso % (Auto) Neut # (Auto) Lymph # (Auto) Simpson # (Auto) Eos # (Auto) Baso # (Auto) Immature Gran % Nucleated RBC % Immature Gran # Nucleated RBCs # Immature Plt Fraction INR PT Patient/Control Mix Circ Anticoag PTT Patient Temperature ABG pH ABG pH at Pt Temp ABG pCO2 ABG pCO2 at Pt Temp ABG pO2 ABG pO2 at Pt Temp ABG HCO3 ABG Total CO2 ABG O2 Saturation ABG Base Excess ABG Sodium VBG pH VBG pCO2 VBG pO2 VBG HCO3 VBG Total CO2 VBG O2 Saturation VBG Base Excess Hemoglobin Hematocrit Potassium Glucose Ionized Calcium FiO2 Sodium Chloride Carbon Dioxide Anion Gap BUN Creatinine GFR Calculation BUN/Creatinine Ratio Calculated Osmolality Calcium Venous Ioniz Calcium Magnesium Total Bilirubin Direct Bilirubin AST ALT Alkaline Phosphatase Total Creatine Kinase CK-MB (CK-2) CK and CKMB Interp Troponin I Total Protein Albumin Globulin Albumin/Globulin Ratio Urine Color Yellow Urine Appearance Slightly hazy Urine pH 5.0 Ur Specific [place] 1.020 Urine Protein Negative Urine Glucose (UA) Negative Urine Ketones 5 Urine Blood Negative Urine Nitrate Negative Urine Bilirubin Negative Urine Urobilinogen < 2.0 H Urine Leukocytes Negative Urine RBC 1 Urine WBC 1 Ur Squamous Epith Cells Occasional Hyaline Casts 4 Urine Mucus Occasional Ur Culture Indicated? Not indicated Blood Type A NEGATIVE Antibody Screen Negative Crossmatch See Detail 03/27/17 03/27/17 03/27/17 07:24 08:30 09:20 WBC RBC Hgb Hct MCV MCH MCHC RDW Plt Count 130 D MPV Neut % (Auto) Lymph % (Auto) Simpson % (Auto) Eos % (Auto) Baso % (Auto) Neut # (Auto) Lymph # (Auto) Simpson # (Auto) Eos # (Auto) Baso # (Auto) Immature Gran % Nucleated RBC % Immature Gran # Nucleated RBCs # Immature Plt Fraction INR PT Patient/Control Mix Circ Anticoag PTT Patient Temperature 37 35 ABG pH 7.393 ABG pH at Pt Temp 7.393 7.432 ABG pCO2 38.9 ABG pCO2 at Pt Temp 38.9 37.5 ABG pO2 443.0 H ABG pO2 at Pt Temp 443.0 37.8 ABG HCO3 23.6 ABG Total CO2 20.9 L ABG O2 Saturation 99.7 ABG Base Excess -1.0 ABG Sodium 139 128 L VBG pH 7.403 VBG pCO2 41.3 VBG pO2 43.4 H VBG HCO3 25.1 VBG Total CO2 24.3 VBG O2 Saturation 76.8 VBG Base Excess 1.0 Hemoglobin 12.2 7.3 L Hematocrit 37.7 23.0 L Potassium 3.7 5.0 Glucose 112 H 349 H Ionized Calcium 1.15 L FiO2 80.00 Sodium Chloride Carbon Dioxide Anion Gap BUN Creatinine GFR Calculation BUN/Creatinine Ratio Calculated Osmolality Calcium Venous Ioniz Calcium 0.92 L Magnesium Total Bilirubin Direct Bilirubin AST ALT Alkaline Phosphatase Total Creatine Kinase CK-MB (CK-2) CK and CKMB Interp Troponin I Total Protein Albumin Globulin Albumin/Globulin Ratio Urine Color Urine Appearance Urine pH Ur Specific [place] Urine Protein Urine Glucose (UA) Urine Ketones Urine Blood Urine Nitrate Urine Bilirubin Urine Urobilinogen Urine Leukocytes Urine RBC Urine WBC Ur Squamous Epith Cells Hyaline Casts Urine Mucus Ur Culture Indicated? Blood Type Antibody Screen Crossmatch 03/27/17 03/27/17 03/27/17 09:20 10:36 10:36 WBC 12.4 H RBC 3.20 L Hgb 10.8 L Hct 30.5 L MCV 95.3 MCH 34 MCHC 35.4 RDW 12.0 Plt Count 179 D MPV 10.8 Neut % (Auto) 81.3 H Lymph % (Auto) 11.1 L Simpson % (Auto) 5.8 Eos % (Auto) 0.7 Baso % (Auto) 0.3 Neut # (Auto) 10.0 H Lymph # (Auto) 1.4 Simpson # (Auto) 0.7 Eos # (Auto) 0.1 Baso # (Auto) 0.0 Immature Gran % 0.8 Nucleated RBC % 0.0 Immature Gran # 0.10 Nucleated RBCs # 0.00 Immature Plt Fraction 0.0 INR 1.3 PT Patient/Control Mix 13.4 Circ Anticoag PTT 29.0 Patient Temperature 37 ABG pH 7.428 ABG pH at Pt Temp 7.428 ABG pCO2 34.4 L ABG pCO2 at Pt Temp 34.4 ABG pO2 463.0 H ABG pO2 at Pt Temp 463.0 ABG HCO3 23.5 ABG Total CO2 20.9 L ABG O2 Saturation 99.9 ABG Base Excess -1.1 ABG Sodium 133 L VBG pH VBG pCO2 VBG pO2 VBG HCO3 VBG Total CO2 VBG O2 Saturation VBG Base Excess Hemoglobin 8.9 L Hematocrit 27.6 L Potassium 4.6 Glucose 219 H Ionized Calcium 1.25 FiO2 Sodium Chloride Carbon Dioxide Anion Gap BUN Creatinine GFR Calculation BUN/Creatinine Ratio Calculated Osmolality Calcium Venous Ioniz Calcium Magnesium Total Bilirubin Direct Bilirubin AST ALT Alkaline Phosphatase Total Creatine Kinase CK-MB (CK-2) CK and CKMB Interp Troponin I Total Protein Albumin Globulin Albumin/Globulin Ratio Urine Color Urine Appearance Urine pH Ur Specific [place] Urine Protein Urine Glucose (UA) Urine Ketones Urine Blood Urine Nitrate Urine Bilirubin Urine Urobilinogen Urine Leukocytes Urine RBC Urine WBC Ur Squamous Epith Cells Hyaline Casts Urine Mucus Ur Culture Indicated? Blood Type Antibody Screen Crossmatch 03/27/17 03/27/17 03/27/17 10:36 10:36 10:36 WBC RBC Hgb Hct MCV MCH MCHC RDW Plt Count MPV Neut % (Auto) Lymph % (Auto) [place] % (Auto) Eos % (Auto) Baso % (Auto) Neut # (Auto) Lymph # (Auto) [place] # (Auto) Eos # (Auto) Baso # (Auto) Immature Gran % Nucleated RBC % Immature Gran # Nucleated RBCs # Immature Plt Fraction INR PT Patient/Control Mix Circ Anticoag PTT Patient Temperature ABG pH 7.439 ABG pH at Pt Temp ABG pCO2 36.7 ABG pCO2 at Pt Temp ABG pO2 163.4 H ABG pO2 at Pt Temp ABG HCO3 24.3 ABG Total CO2 25.4 ABG O2 Saturation 98.4 ABG Base Excess 0.4 ABG Sodium VBG pH VBG pCO2 VBG pO2 VBG HCO3 VBG Total CO2 VBG O2 Saturation VBG Base Excess Hemoglobin 11.1 L Hematocrit 33.0 L Potassium 4.4 4.2 Glucose 155 H 153 H Ionized Calcium FiO2 Sodium 138 Chloride 104 Carbon Dioxide 28 Anion Gap 10.4 BUN 18 Creatinine 0.80 GFR Calculation 102 BUN/Creatinine Ratio 22.00 H Calculated Osmolality 279.7 Calcium 9.6 Venous Ioniz Calcium Magnesium 1.9 Total Bilirubin 0.90 Direct Bilirubin AST 38 H ALT 20 Alkaline Phosphatase 85 Total Creatine Kinase 187 CK-MB (CK-2) 12.3 H CK and CKMB Interp 6.6 Troponin I 1.520 H Total Protein 5.9 L Albumin 3.1 L Globulin 2.8 Albumin/Globulin Ratio 1.1 Urine Color Urine Appearance Urine pH Ur Specific [place] Urine Protein Urine Glucose (UA) Urine Ketones Urine Blood Urine Nitrate Urine Bilirubin Urine Urobilinogen Urine Leukocytes Urine RBC Urine WBC Ur Squamous Epith Cells Hyaline Casts Urine Mucus Ur Culture Indicated? Blood Type Antibody Screen Crossmatch 03/27/17 03/27/17 03/27/17 11:27 12:22 16:00 WBC RBC Hgb Hct MCV MCH MCHC RDW Plt Count MPV Neut % (Auto) Lymph % (Auto) [place] % (Auto) Eos % (Auto) Baso % (Auto) Neut # (Auto) Lymph # (Auto) [place] # (Auto) Eos # (Auto) Baso # (Auto) Immature Gran % Nucleated RBC % Immature Gran # Nucleated RBCs # Immature Plt Fraction INR PT Patient/Control Mix Circ Anticoag PTT Patient Temperature ABG pH 7.441 7.411 ABG pH at Pt Temp ABG pCO2 35.8 36.5 ABG pCO2 at Pt Temp ABG pO2 117.9 H 94.9 ABG pO2 at Pt Temp ABG HCO3 23.8 23.5 ABG Total CO2 24.9 21.1 L ABG O2 Saturation 97.8 97.6 ABG Base Excess 0.0 -1.0 ABG Sodium VBG pH VBG pCO2 VBG pO2 VBG HCO3 VBG Total CO2 VBG O2 Saturation VBG Base Excess Hemoglobin 11.2 L 10.1 L Hematocrit 33.0 L 31.1 L Potassium 4.6 4.4 4.6 Glucose 135 H 140 H Ionized Calcium FiO2 Sodium Chloride Carbon Dioxide Anion Gap BUN Creatinine GFR Calculation BUN/Creatinine Ratio Calculated Osmolality Calcium Venous Ioniz Calcium Magnesium Total Bilirubin Direct Bilirubin AST ALT Alkaline Phosphatase Total Creatine Kinase CK-MB (CK-2) CK and CKMB Interp Troponin I Total Protein Albumin Globulin Albumin/Globulin Ratio Urine Color Urine Appearance Urine pH Ur Specific [place] Urine Protein Urine Glucose (UA) Urine Ketones Urine Blood Urine Nitrate Urine Bilirubin Urine Urobilinogen Urine Leukocytes Urine RBC Urine WBC Ur Squamous Epith Cells Hyaline Casts Urine Mucus Ur Culture Indicated? Blood Type Antibody Screen Crossmatch 03/27/17 03/27/17 03/27/17 18:15 18:15 21:18 WBC RBC Hgb 10.0 L Hct 29.0 L MCV MCH MCHC RDW Plt Count MPV Neut % (Auto) Lymph % (Auto) [place] % (Auto) Eos % (Auto) Baso % (Auto) Neut # (Auto) Lymph # (Auto) [place] # (Auto) Eos # (Auto) Baso # (Auto) Immature Gran % Nucleated RBC % Immature Gran # Nucleated RBCs # Immature Plt Fraction INR PT Patient/Control Mix Circ Anticoag PTT Patient Temperature ABG pH 7.393 ABG pH at Pt Temp ABG pCO2 37.3 ABG pCO2 at Pt Temp ABG pO2 107.0 H ABG pO2 at Pt Temp ABG HCO3 22.9 ABG Total CO2 21.0 L ABG O2 Saturation 98.4 ABG Base Excess -1.8 ABG Sodium VBG pH VBG pCO2 VBG pO2 VBG HCO3 VBG Total CO2 VBG O2 Saturation VBG Base Excess Hemoglobin 8.8 L Hematocrit 27.2 L Potassium 4.7 Glucose 133 H Ionized Calcium FiO2 Sodium Chloride Carbon Dioxide Anion Gap BUN Creatinine GFR Calculation BUN/Creatinine Ratio Calculated Osmolality Calcium Venous Ioniz Calcium Magnesium Total Bilirubin Direct Bilirubin AST ALT Alkaline Phosphatase Total Creatine Kinase 158 CK-MB (CK-2) 7.9 H CK and CKMB Interp 5.0 Troponin I 1.600 H Total Protein Albumin Globulin Albumin/Globulin Ratio Urine Color Urine Appearance Urine pH Ur Specific [place] Urine Protein Urine Glucose (UA) Urine Ketones Urine Blood Urine Nitrate Urine Bilirubin Urine Urobilinogen Urine Leukocytes Urine RBC Urine WBC Ur Squamous Epith Cells Hyaline Casts Urine Mucus Ur Culture Indicated? Blood Type Antibody Screen Crossmatch 03/28/17 03/28/17 03/28/17 01:55 04:00 04:00 WBC 12.7 H RBC 3.04 L Hgb 10.0 L Hct 28.9 L MCV 95.1 MCH 33 MCHC 34.6 RDW 12.7 Plt Count 137 D MPV 11.1 Neut % (Auto) 90.5 H Lymph % (Auto) 6.2 L [place] % (Auto) 2.6 Eos % (Auto) 0.0 Baso % (Auto) 0.1 Neut # (Auto) 11.5 H Lymph # (Auto) 0.8 L [place] # (Auto) 0.3 Eos # (Auto) 0.0 Baso # (Auto) 0.0 Immature Gran % 0.6 Nucleated RBC % 0.0 Immature Gran # 0.07 Nucleated RBCs # 0.00 Immature Plt Fraction 0.0 INR PT Patient/Control Mix Circ Anticoag PTT Patient Temperature ABG pH 7.369 ABG pH at Pt Temp ABG pCO2 37.8 ABG pCO2 at Pt Temp ABG pO2 71.1 L ABG pO2 at Pt Temp ABG HCO3 21.8 ABG Total CO2 19.9 L ABG O2 Saturation 93.1 L ABG Base Excess -3.1 L ABG Sodium VBG pH VBG pCO2 VBG pO2 VBG HCO3 VBG Total CO2 VBG O2 Saturation VBG Base Excess Hemoglobin 10.2 L Hematocrit 31.5 L Potassium 4.3 Glucose 137 H Ionized Calcium FiO2 Sodium Chloride Carbon Dioxide Anion Gap BUN Creatinine GFR Calculation BUN/Creatinine Ratio Calculated Osmolality Calcium Venous Ioniz Calcium Magnesium Total Bilirubin Direct Bilirubin AST ALT Alkaline Phosphatase Total Creatine Kinase 167 CK-MB (CK-2) 7.3 H CK and CKMB Interp 4.4 Troponin I 0.983 H D Total Protein Albumin Globulin Albumin/Globulin Ratio Urine Color Urine Appearance Urine pH Ur Specific [place] Urine Protein Urine Glucose (UA) Urine Ketones Urine Blood Urine Nitrate Urine Bilirubin Urine Urobilinogen Urine Leukocytes Urine RBC Urine WBC Ur Squamous Epith Cells Hyaline Casts Urine Mucus Ur Culture Indicated? Blood Type Antibody Screen Crossmatch 03/28/17 03/28/17 03/28/17 04:00 04:12 05:30 WBC RBC Hgb Hct MCV MCH MCHC RDW Plt Count MPV Neut % (Auto) Lymph % (Auto) [place] % (Auto) Eos % (Auto) Baso % (Auto) Neut # (Auto) Lymph # (Auto) [place] # (Auto) Eos # (Auto) Baso # (Auto) Immature Gran % Nucleated RBC % Immature Gran # Nucleated RBCs # Immature Plt Fraction INR PT Patient/Control Mix Circ Anticoag PTT Patient Temperature ABG pH 7.388 7.369 ABG pH at Pt Temp ABG pCO2 38.0 38.8 ABG pCO2 at Pt Temp ABG pO2 143.0 H 105.0 H ABG pO2 at Pt Temp ABG HCO3 22.9 22.3 ABG Total CO2 20.8 L 20.5 L ABG O2 Saturation 99.3 98.0 ABG Base Excess -1.8 -2.6 L ABG Sodium VBG pH VBG pCO2 VBG pO2 VBG HCO3 VBG Total CO2 VBG O2 Saturation VBG Base Excess Hemoglobin 9.9 L Hematocrit 30.6 L Potassium 4.1 4.0 Glucose 125 H 126 H Ionized Calcium FiO2 Sodium 140 Chloride 106 Carbon Dioxide 25 Anion Gap 13.1 BUN 25 H Creatinine 0.70 GFR Calculation 119 BUN/Creatinine Ratio 35.00 H Calculated Osmolality 283.4 Calcium 8.9 Venous Ioniz Calcium Magnesium 1.8 Total Bilirubin 0.40 Direct Bilirubin 0.160 AST 29 ALT 19 Alkaline Phosphatase 67 Total Creatine Kinase CK-MB (CK-2) CK and CKMB Interp Troponin I Total Protein 5.7 L Albumin 3.4 Globulin 2.3 Albumin/Globulin Ratio 1.4 Urine Color Urine Appearance Urine pH Ur Specific [place] Urine Protein Urine Glucose (UA) Urine Ketones Urine Blood Urine Nitrate Urine Bilirubin Urine Urobilinogen Urine Leukocytes Urine RBC Urine WBC Ur Squamous Epith Cells Hyaline Casts Urine Mucus Ur Culture Indicated? Blood Type Antibody Screen Crossmatch Quality Measures - VTE Contraindication to Pharmacological VTE Prophylaxis: High Risk of Bleeding
[2017-03-28] MEDS ORDERED: CETIRIZINE 10 MG TABLET PO PRN (06:34)
[2017-03-28] MEDS ORDERED: tiZANidine 4 MG TABLET PO PRN (06:34)
--- NOTE | 2017-03-28 07:48 | Order Completion Report ---
See report scanned to EMR
[2017-03-28 07:59] LABS: ABG Base Excess -1.7 MMOL/L (-2.5-2.5); ABG HCO3 22.9 MMOL/L (20-26); ABG Oxygen Saturation 98.1 % (95-100); ABG PCO2 38.2 MM HG (35-48); ABG PH 7.387 (7.35-7.45); ABG TCO2 20.9 MMOL/L (23-27); Glucose Heart Surgery 123 MG/DL (74-106); Hematocrit Heart Surgery 30.8 PERCENT (37-47); Potassium Heart/CVR 4.2 MMOL/L (3.5-5.1)
[2017-03-28] MEDS: LEVOTHYROXINE 88 MCG TABLET PO SCH (08:00)
[2017-03-28] MEDS: METOPROLOL TARTRATE 25 MG TABLET PO SCH (08:00)
[2017-03-28] MEDS: ASPIRIN EC 81 MG TABLET PO SCH (08:00)
--- NOTE | 2017-03-28 08:44 | XRay Report ---
XR chest 1V portable Indication: Chest tube removal, pneumothorax Comparison: 27 March 2017 Findings: The heart and mediastinum are stable in size and configuration. Chest tube is been removed. Remaining lines and tubes are unchanged in position. The pulmonary vascularity is normal in caliber. No lung infiltrates, effusions, pneumothorax or other abnormality is demonstrated. Impression: Removal of chest tube. No other significant changes. PROCEDURE INTERPRETED AT [facility] DEPARTMENT OF RADIOLOGY Final Report Signed by: Dr. Senthil Rodriguez
[2017-03-28] MEDS: GABAPENTIN 400 MG CAPSULE PO SCH ×4 (09:10→22:14)
[2017-03-28] MEDS: LISINOPRIL 20 MG TABLET PO SCH (09:10)
[2017-03-28] MEDS: ALLOPURINOL 100 MG TABLET PO SCH (09:10)
[2017-03-28] MEDS: CHLORHEXIDINE 0.12% ORAL RINSE 60 ML BOTTLE SWISH/SPIT SCH ×2 (09:10→22:14)
[2017-03-28 09:19] LABS: ABG Base Excess -2.9 MMOL/L (-2.5-2.5); ABG HCO3 22.1 MMOL/L (20-26); ABG Oxygen Saturation 98.4 % (95-100); ABG PCO2 37.2 MM HG (35-48); ABG PH 7.376 (7.35-7.45); ABG TCO2 18.5 MMOL/L (23-27); Glucose Heart Surgery 129 MG/DL (74-106); Hematocrit Heart Surgery 46.6 PERCENT (37-47); Hemoglobin Heart Surgery 15.2 G/DL (12.0-16.0); Potassium Heart/CVR 4.1 MMOL/L (3.5-5.1)
[2017-03-28] MEDS: VANCOMYCIN INJ 1,000 MG in SODIUM CHLORIDE 0.9% 250 ML IV SCH ×2 (09:50→23:27)
[2017-03-28] MEDS: SODIUM CHLORIDE 0.45% 1,000 ML IV SCH ×2 (10:00)
[2017-03-28] MEDS: INSULIN REGULAR DRIP 100 ML IV SCH (10:00)
[2017-03-28 11:03] LABS: ABG Base Excess -3.3 MMOL/L (-2.5-2.5); ABG HCO3 21.6 MMOL/L (20-26); ABG Oxygen Saturation 97.7 % (95-100); ABG PCO2 40.5 MM HG (35-48); ABG PH 7.345 (7.35-7.45); ABG TCO2 20.3 MMOL/L (23-27); Glucose Heart Surgery 129 MG/DL (74-106); Hematocrit Heart Surgery 30.1 PERCENT (37-47); Hemoglobin Heart Surgery 9.7 G/DL (12.0-16.0); Potassium Heart/CVR 4.3 MMOL/L (3.5-5.1)
[2017-03-28] MEDS: INSULIN REGULAR 100 UNIT/ML SUBCUT SCH ×3 (12:00→20:26)
[2017-03-28] MEDS: MORPHINE ER 30 MG TABLET PO SCH (14:50)
[2017-03-28] MEDS ORDERED: DEXTROSE 50% 25 GM/50 ML VIAL IV PRN (18:09)
[2017-03-28] MEDS ORDERED: GLUCAGON 1 MG VIAL IM PRN (18:09)
[2017-03-28] MEDS: CITALOPRAM 20 MG TABLET PO SCH (22:13)
[2017-03-28] MEDS: ATORVASTATIN 10 MG TABLET PO SCH (22:14)
[2017-03-29] MEDS: INSULIN REGULAR 100 UNIT/ML SUBCUT SCH ×5 (01:29→18:13)
[2017-03-29] MEDS: MORPHINE 2 MG/1 ML SYRINGE IV PRN (03:26)
[2017-03-29] MEDS: MORPHINE ER 30 MG TABLET PO SCH ×4 (05:46→22:00)
[2017-03-29] MEDS: ALBUMIN 5% 12.5 GM in PREMIX 1 EACH IV PRN ×2 (05:51→06:39)
[2017-03-29 05:54] LABS: Basophils % 0.1 % (0.0-0.8); Eosinophils % 0.3 % (0.00-10.9); Hematocrit 26.1 VOL% (35.7-47.0); Immature Granulocytes % 0.6 %; Immature Granulocytes Absolute 0.06 #; Lymphocytes % 18.2 % (21.3-54.2); Mean Corpuscular HGB Conc 34.5 GM/DL (32-36); Mean Corpuscular Hemoglobin 33 PG (27-34); Mean Corpuscular Volume 96.3 FL (87-102); Mean Platelet Volume 11.7 FL (9.6-12.0); Monocytes # 0.9 10*3/uL (0.11-0.8); Monocytes % 8.2 % (1.7-12.7); Neutrophils # 7.9 10*3/uL (1.4-7.4); Neutrophils % 72.6 % (38.7-73.9); Platelet Count 152 T/CUMM (130-400); Red Blood Count 2.71 MC/CUMM (3.8-5.5); White Blood Count 10.8 T/CUMM (4-12)
--- NOTE | 2017-03-29 06:25 | Cardiothoracic Progress Note ---
Cardiothoracic Subjective Interval history: Patient is awake alert and extubated. She has had an uncomfortable night with generalized soreness particularly in her neck and back. She does suffer from chronic pain syndrome and is on daily doses of long-acting opiates. Analgesia may be a significant challenge in the postoperative period. We will continue to do our best but she may need to be switched to Dilaudid instead of morphine. We will see how she feels later this morning. Vital signs have been reasonably stable although she has been moderately hypotensive. Her hematocrit is 26 this morning I think we will give her another unit of packed cells. Suspect that her blood pressure is probably volume related. We will keep her in intensive care at least through the morning and see how she feels later today. Exam (Progress Note) - Constitutional Vitals: Period Temp Pulse Resp BP Sys/Raya Pulse Ox Last 24 Hr 98.1 F-99.3 F 63-85 10- 83-155/26-66 95-99 Result/EKG - Labs CBC & BMP: 03/29/17 05:28 03/28/17 04:00 Labs: Laboratory Results - last 24 hr 03/26/17 03/27/17 03/27/17 10:31 13:21 13:59 WBC RBC Hgb Hct MCV MCH MCHC RDW Plt Count MPV Neut % (Auto) Lymph % (Auto) [place] % (Auto) Eos % (Auto) Baso % (Auto) Neut # (Auto) Lymph # (Auto) [place] # (Auto) Eos # (Auto) Baso # (Auto) Immature Gran % Nucleated RBC % Immature Gran # Nucleated RBCs # Immature Plt Fraction ABG pH ABG pCO2 ABG pO2 ABG HCO3 ABG Total CO2 ABG O2 Saturation ABG Base Excess Hemoglobin Hematocrit Potassium Glucose POC Glucose 144 H 139 H Blood Type A NEGATIVE Antibody Screen Negative Crossmatch See Detail 03/27/17 03/27/17 03/27/17 15:15 16:26 17:19 WBC RBC Hgb Hct MCV MCH MCHC RDW Plt Count MPV Neut % (Auto) Lymph % (Auto) [place] % (Auto) Eos % (Auto) Baso % (Auto) Neut # (Auto) Lymph # (Auto) [place] # (Auto) Eos # (Auto) Baso # (Auto) Immature Gran % Nucleated RBC % Immature Gran # Nucleated RBCs # Immature Plt Fraction ABG pH ABG pCO2 ABG pO2 ABG HCO3 ABG Total CO2 ABG O2 Saturation ABG Base Excess Hemoglobin Hematocrit Potassium Glucose POC Glucose 119 H 122 H 132 H Blood Type Antibody Screen Crossmatch 03/27/17 03/27/17 03/27/17 19:08 20:04 21:13 WBC RBC Hgb Hct MCV MCH MCHC RDW Plt Count MPV Neut % (Auto) Lymph % (Auto) [place] % (Auto) Eos % (Auto) Baso % (Auto) Neut # (Auto) Lymph # (Auto) [place] # (Auto) Eos # (Auto) Baso # (Auto) Immature Gran % Nucleated RBC % Immature Gran # Nucleated RBCs # Immature Plt Fraction ABG pH ABG pCO2 ABG pO2 ABG HCO3 ABG Total CO2 ABG O2 Saturation ABG Base Excess Hemoglobin Hematocrit Potassium Glucose POC Glucose 152 H 138 H 117 H Blood Type Antibody Screen Crossmatch 03/27/17 03/27/17 03/28/17 22:14 23:11 00:08 WBC RBC Hgb Hct MCV MCH MCHC RDW Plt Count MPV Neut % (Auto) Lymph % (Auto) [place] % (Auto) Eos % (Auto) Baso % (Auto) Neut # (Auto) Lymph # (Auto) [place] # (Auto) Eos # (Auto) Baso # (Auto) Immature Gran % Nucleated RBC % Immature Gran # Nucleated RBCs # Immature Plt Fraction ABG pH ABG pCO2 ABG pO2 ABG HCO3 ABG Total CO2 ABG O2 Saturation ABG Base Excess Hemoglobin Hematocrit Potassium Glucose POC Glucose 108 H 92 117 H Blood Type Antibody Screen Crossmatch 03/28/17 03/28/17 03/28/17 01:05 03:22 04:02 WBC RBC Hgb Hct MCV MCH MCHC RDW Plt Count MPV Neut % (Auto) Lymph % (Auto) [place] % (Auto) Eos % (Auto) Baso % (Auto) Neut # (Auto) Lymph # (Auto) [place] # (Auto) Eos # (Auto) Baso # (Auto) Immature Gran % Nucleated RBC % Immature Gran # Nucleated RBCs # Immature Plt Fraction ABG pH ABG pCO2 ABG pO2 ABG HCO3 ABG Total CO2 ABG O2 Saturation ABG Base Excess Hemoglobin Hematocrit Potassium Glucose POC Glucose 132 H 111 H 128 H Blood Type Antibody Screen Crossmatch 03/28/17 03/28/17 03/28/17 05:22 06:03 06:59 WBC RBC Hgb Hct MCV MCH MCHC RDW Plt Count MPV Neut % (Auto) Lymph % (Auto) [place] % (Auto) Eos % (Auto) Baso % (Auto) Neut # (Auto) Lymph # (Auto) [place] # (Auto) Eos # (Auto) Baso # (Auto) Immature Gran % Nucleated RBC % Immature Gran # Nucleated RBCs # Immature Plt Fraction ABG pH ABG pCO2 ABG pO2 ABG HCO3 ABG Total CO2 ABG O2 Saturation ABG Base Excess Hemoglobin Hematocrit Potassium Glucose POC Glucose 128 H 119 H 134 H Blood Type Antibody Screen Crossmatch 03/28/17 03/28/17 03/28/17 07:53 08:56 10:02 WBC RBC Hgb Hct MCV MCH MCHC RDW Plt Count MPV Neut % (Auto) Lymph % (Auto) [place] % (Auto) Eos % (Auto) Baso % (Auto) Neut # (Auto) Lymph # (Auto) [place] # (Auto) Eos # (Auto) Baso # (Auto) Immature Gran % Nucleated RBC % Immature Gran # Nucleated RBCs # Immature Plt Fraction ABG pH 7.387 7.376 ABG pCO2 38.2 37.2 ABG pO2 108.0 H 117.0 H ABG HCO3 22.9 22.1 ABG Total CO2 20.9 L 18.5 L ABG O2 Saturation 98.1 98.4 ABG Base Excess -1.7 -2.9 L Hemoglobin 10.0 L 15.2 Hematocrit 30.8 L 46.6 Potassium 4.2 4.1 Glucose 123 H 129 H POC Glucose 147 H Blood Type Antibody Screen Crossmatch 03/28/17 03/28/17 03/28/17 10:56 11:59 16:01 WBC RBC Hgb Hct MCV MCH MCHC RDW Plt Count MPV Neut % (Auto) Lymph % (Auto) [place] % (Auto) Eos % (Auto) Baso % (Auto) Neut # (Auto) Lymph # (Auto) [place] # (Auto) Eos # (Auto) Baso # (Auto) Immature Gran % Nucleated RBC % Immature Gran # Nucleated RBCs # Immature Plt Fraction ABG pH 7.345 L ABG pCO2 40.5 ABG pO2 104.0 H ABG HCO3 21.6 ABG Total CO2 20.3 L ABG O2 Saturation 97.7 ABG Base Excess -3.3 L Hemoglobin 9.7 L Hematocrit 30.1 L Potassium 4.3 Glucose 129 H POC Glucose 151 H 143 H Blood Type Antibody Screen Crossmatch 03/28/17 03/28/17 03/29/17 19:16 23:39 05:28 WBC 10.8 RBC 2.71 L Hgb 9.0 L Hct 26.1 L MCV 96.3 MCH 33 MCHC 34.5 RDW 13.0 Plt Count 152 MPV 11.7 Neut % (Auto) 72.6 Lymph % (Auto) 18.2 L [place] % (Auto) 8.2 Eos % (Auto) 0.3 Baso % (Auto) 0.1 Neut # (Auto) 7.9 H Lymph # (Auto) 2.0 [place] # (Auto) 0.9 H Eos # (Auto) 0.0 Baso # (Auto) 0.0 Immature Gran % 0.6 Nucleated RBC % 0.0 Immature Gran # 0.06 Nucleated RBCs # 0.00 Immature Plt Fraction 0.0 ABG pH ABG pCO2 ABG pO2 ABG HCO3 ABG Total CO2 ABG O2 Saturation ABG Base Excess Hemoglobin Hematocrit Potassium Glucose POC Glucose 257 H 91 Blood Type Antibody Screen Crossmatch Quality Measures - VTE Contraindication to Pharmacological VTE Prophylaxis: High Risk of Bleeding Specialty Discharge - Follow Up or Referrals
[2017-03-29 07:10] LABS: Alanine Aminotransferase 19 U/L (13-56); Albumin 3.1 G/DL (3.4-5.0); Alkaline Phosphatase 65 U/L (45-117); Aspartate Amino Transferase 26 U/L (0-37); Bilirubin,Total < 0.39 MG/DL (0.2-1.0); Blood Urea Nitrogen 40 MG/DL (7-18); Calcium 7.7 MG/DL (8.5-10.1); Glucose 91 MG/DL (74-106); Osmolality,Calculated 284.7 MOS/KG (273-304); Potassium 4.1 MMOL/L (3.5-5.1); Sodium 138 MMOL/L (136-145); Total Protein 5.4 G/DL (6.4-8.3)
--- NOTE | 2017-03-29 07:15 | XRay Report ---
XR chest 1V portable Indication: Chest tube removal Comparison: 28 March 2017 Findings: The heart and mediastinum are similar in size and configuration. Endotracheal tube and NG tube have been removed. Right internal jugular catheter is unchanged in position. The pulmonary vascularity is normal prominent but similar to previous exam. No lung infiltrates, effusions, pneumothorax or other abnormality is demonstrated. Impression: Interval extubation and removal of NG tube. No other significant changes. PROCEDURE INTERPRETED AT [facility] DEPARTMENT OF RADIOLOGY Final Report Signed by: Dr. Senthil Rodriguez
[2017-03-29] MEDS: LEVOTHYROXINE 88 MCG TABLET PO SCH (07:22)
[2017-03-29] MEDS: ASPIRIN EC 81 MG TABLET PO SCH (08:56)
[2017-03-29] MEDS: AMIODARONE 200 MG TABLET PO SCH ×2 (08:56→22:00)
[2017-03-29] MEDS: GABAPENTIN 400 MG CAPSULE PO SCH ×3 (08:56→18:15)
[2017-03-29] MEDS: ALLOPURINOL 100 MG TABLET PO SCH (08:56)
[2017-03-29] MEDS: CHLORHEXIDINE 0.12% ORAL RINSE 60 ML BOTTLE SWISH/SPIT SCH ×2 (09:00→21:59)
[2017-03-29] MEDS: METOPROLOL TARTRATE 25 MG TABLET PO SCH (09:03)
[2017-03-29] MEDS: LISINOPRIL 20 MG TABLET PO SCH (09:04)
[2017-03-29] MEDS: VANCOMYCIN INJ 1,000 MG in SODIUM CHLORIDE 0.9% 250 ML IV SCH (09:35)
[2017-03-29] MEDS ORDERED: FUROSEMIDE 40 MG/4 ML VIAL IV ONE (12:00)
[2017-03-29] MEDS ORDERED: DEXTROSE 50% 25 GM/50 ML VIAL IV PRN ×4 (13:00→19:53)
--- NOTE | 2017-03-29 14:29 | Physician Query Form ---
CLICK EDIT DOCUMENT TO SELECT QUERY ANSWER --> OK --> SIGN Onelia Rascon RN Clinical Manager Cash W) [phone] (f) [phone] [email or web address] PROVIDERS: Make your selection(s) from the choices in EACH section by typing an "x" and enter comments in the comment section. Please use your independent medical judgment in providing your response. This request does not imply that any particular answer is desired or expected. CLINICAL INDICATORS: (Providers should not edit this section) Based on documentation of "She does suffer from chronic pain syndrome and is on daily doses of long-acting opiates". Based on the above, could you clarify the appropriate diagnosis, if significant , that supports the above abnormalities and additional evaluation, monitoring, and/or treatment rendered: ( ) Pt. has opioid dependence ( x) Pt. does not have opioid dependence ( ) Other, please specify: ( ) Clinically unable to determine COMMENTS: PLEASE ALSO DOCUMENT RESPONSE IN PROGRESS NOTES AND/OR DISCHARGE SUMMARY Use of terms such as suspected, likely, or probable (associated with a specific diagnosis that is being evaluated, monitored, or treated as if it exists) are acceptable and can be restated in the discharge summary if not ruled out. MTDD
[2017-03-29] MEDS: SODIUM CHLORIDE 0.45% 1,000 ML IV SCH (18:14)
[2017-03-29] MEDS ORDERED: MAGNESIUM SULF RIDER 2 GM in PREMIX 1 EACH IV PRN (19:53)
[2017-03-29] MEDS ORDERED: ALUMINUM/MAGNES/SIMETH MAX STR 30 ML UDCUP PO PRN (19:53)
[2017-03-29] MEDS ORDERED: ZALEPLON 5 MG CAPSULE PO PRN (19:53)
[2017-03-29] MEDS ORDERED: MAGNESIUM HYDROXIDE SUSP 30 ML UDCUP PO PRN (19:53)
[2017-03-29] MEDS ORDERED: ONDANSETRON 4 MG/2 ML VIAL IV PRN (19:53)
[2017-03-29] MEDS ORDERED: MAGNESIUM SULF RIDER 4 GM in PREMIX 1 EACH IV PRN (19:53)
[2017-03-29] MEDS ORDERED: GLUCAGON 1 MG VIAL IM PRN ×2 (19:53)
[2017-03-29] MEDS ORDERED: SODIUM CHLOR 0.45% KCL 20 MEQ 20 MEQ/1,000 ML BAG IV SCH (19:53)
[2017-03-29] MEDS ORDERED: diphenhydrAMINE CAP 25 MG CAPSULE PO PRN (19:53)
[2017-03-29] MEDS ORDERED: POTASSIUM CHLORIDE 20 MEQ TABLET PO PRN (19:53)
[2017-03-29] MEDS ORDERED: ACETAMINOPHEN 325 MG TABLET PO PRN (19:53)
[2017-03-29] MEDS: KETOROLAC 30 MG/1 ML VIAL IV SCH (21:58)
[2017-03-29] MEDS: CITALOPRAM 20 MG TABLET PO SCH (22:00)
[2017-03-29] MEDS: ATORVASTATIN 10 MG TABLET PO SCH (22:01)
[2017-03-30] MEDS: KETOROLAC 30 MG/1 ML VIAL IV SCH ×4 (02:57→21:55)
[2017-03-30 03:56] LABS: Basophils % 0.4 % (0.0-0.8); Eosinophils # 0.1 10*3/uL (0.0-0.87); Hematocrit 29.5 VOL% (35.7-47.0); Hemoglobin 9.8 GM/DL (12.0-16.0); Immature Granulocytes % 0.4 %; Immature Granulocytes Absolute 0.04 #; Lymphocytes # 1.9 10*3/uL (1.4-4.0); Lymphocytes % 18.8 % (21.3-54.2); Mean Corpuscular HGB Conc 33.2 GM/DL (32-36); Mean Corpuscular Hemoglobin 32 PG (27-34); Mean Corpuscular Volume 95.5 FL (87-102); Mean Platelet Volume 11.3 FL (9.6-12.0); Monocytes # 0.8 10*3/uL (0.11-0.8); Monocytes % 8.3 % (1.7-12.7); Neutrophils # 7.1 10*3/uL (1.4-7.4); Neutrophils % 71.1 % (38.7-73.9); Platelet Count 120 T/CUMM (130-400); Red Blood Count 3.09 MC/CUMM (3.8-5.5); Red Cell Distribution Width 14.1 % (9.3-17.3)
[2017-03-30 04:25] LABS: Alanine Aminotransferase 20 U/L (13-56); Albumin 3.1 G/DL (3.4-5.0); Alkaline Phosphatase 69 U/L (45-117); Aspartate Amino Transferase 22 U/L (0-37); Bilirubin,Indirect 0.2 MG/DL (0.0-1.0); Blood Urea Nitrogen 30 MG/DL (7-18); Glucose 91 MG/DL (74-106); Potassium 4.1 MMOL/L (3.5-5.1); Sodium 143 MMOL/L (136-145); Total Protein 5.5 G/DL (6.4-8.3); Troponin I Only 0.352 NG/ML (0.00-0.045)
[2017-03-30] MEDS ORDERED: FUROSEMIDE 40 MG/4 ML VIAL IV ONE (06:00)
[2017-03-30] MEDS: LEVOTHYROXINE 88 MCG TABLET PO SCH (06:34)
[2017-03-30] MEDS: MORPHINE ER 30 MG TABLET PO SCH ×3 (06:35→21:56)
--- NOTE | 2017-03-30 08:24 | XRay Report ---
History: Shortness of breath Date: 03/30/2017 Study: Chest x-ray AP portable Comparison exam: 03/29/2017 The right IJ central line remains in satisfactory position with its tip over the right atrium. There is stable cardiomegaly. The mediastinal contours are stable in this patient status post median sternotomy. The pulmonary vasculature is not engorged. There is some minor subsegmental atelectasis in the lung bases. There is no new or worsening infiltrate to suggest pneumonia. There is minimal left pleural effusion as before. Osseous structures are unchanged. Impression: Stable exam compared to the previous study. No adverse interval changes PROCEDURE INTERPRETED AT [facility] DEPARTMENT OF RADIOLOGY Final Report Signed by: Dr. Muriel Marquez
[2017-03-30] MEDS: DOCUSATE SODIUM 100 MG CAPSULE PO SCH (09:00)
[2017-03-30] MEDS: ASPIRIN EC 81 MG TABLET PO SCH (09:00)
[2017-03-30] MEDS: AMIODARONE 200 MG TABLET PO SCH ×2 (09:00→21:56)
[2017-03-30] MEDS: FERROUS SULFATE 325 MG TABLET PO SCH (09:00)
[2017-03-30] MEDS: MULTIVITAMIN (CENTRUM) TABLET PO SCH (09:00)
[2017-03-30] MEDS: PANTOPRAZOLE 40 MG TABLET PO SCH (09:00)
[2017-03-30] MEDS: CHOLECALCIFEROL 1,000 UNIT TABLET PO SCH (09:00)
[2017-03-30] MEDS: ALLOPURINOL 100 MG TABLET PO SCH (09:01)
[2017-03-30] MEDS: CHLORHEXIDINE 0.12% ORAL RINSE 60 ML BOTTLE SWISH/SPIT SCH ×2 (09:04→21:56)
[2017-03-30] MEDS: METOPROLOL TARTRATE 25 MG TABLET PO SCH (11:25)
[2017-03-30] MEDS: LISINOPRIL 20 MG TABLET PO SCH (11:26)
[2017-03-30] MEDS: CITALOPRAM 20 MG TABLET PO SCH (21:55)
[2017-03-30] MEDS: ATORVASTATIN 10 MG TABLET PO SCH (21:56)
[2017-03-31] MEDS: KETOROLAC 30 MG/1 ML VIAL IV SCH ×4 (02:27→21:32)
[2017-03-31 03:38] LABS: Basophils % 0.4 % (0.0-0.8); Eosinophils # 0.3 10*3/uL (0.0-0.87); Eosinophils % 3.5 % (0.00-10.9); Hematocrit 30.4 VOL% (35.7-47.0); Hemoglobin 10.1 GM/DL (12.0-16.0); Immature Granulocytes % 0.3 %; Immature Granulocytes Absolute 0.03 #; Lymphocytes # 1.7 10*3/uL (1.4-4.0); Lymphocytes % 19.3 % (21.3-54.2); Mean Corpuscular HGB Conc 33.2 GM/DL (32-36); Mean Corpuscular Hemoglobin 32 PG (27-34); Mean Corpuscular Volume 95.6 FL (87-102); Mean Platelet Volume 11.9 FL (9.6-12.0); Monocytes # 0.5 10*3/uL (0.11-0.8); Monocytes % 5.7 % (1.7-12.7); Neutrophils # 6.4 10*3/uL (1.4-7.4); Neutrophils % 70.8 % (38.7-73.9); Platelet Count 129 T/CUMM (130-400); Red Blood Count 3.18 MC/CUMM (3.8-5.5); Red Cell Distribution Width 13.4 % (9.3-17.3)
[2017-03-31 04:25] LABS: Alanine Aminotransferase 21 U/L (13-56); Albumin 3.3 G/DL (3.4-5.0); Alkaline Phosphatase 73 U/L (45-117); Aspartate Amino Transferase 19 U/L (0-37); Bilirubin,Indirect 0.5 MG/DL (0.0-1.0); Blood Urea Nitrogen 29 MG/DL (7-18); Calcium 8.3 MG/DL (8.5-10.1); Glucose 83 MG/DL (74-106); Magnesium 2.3 MG/DL (1.8-2.4); Potassium 4.2 MMOL/L (3.5-5.1); Sodium 143 MMOL/L (136-145); Total Protein 5.6 G/DL (6.4-8.3)
[2017-03-31 04:28] LABS: Troponin I Only 0.147 NG/ML (0.00-0.045)
[2017-03-31] MEDS: MORPHINE ER 30 MG TABLET PO SCH ×3 (05:59→21:32)
[2017-03-31] MEDS: LEVOTHYROXINE 88 MCG TABLET PO SCH (06:03)
--- NOTE | 2017-03-31 06:35 | Cardiothoracic Progress Note ---
Cardiothoracic Subjective Interval history: Patient had a comfortable night. Vital signs have been stable and she is breathing comfortably. Laboratory work from this morning is pending the chest x -ray looks satisfactory. We will gradually try to increase her activities today according to routine postop protocol but overall her progress appears satisfactory. Exam (Progress Note) - Constitutional Vitals: Period Temp Pulse Resp BP Sys/Raya Pulse Ox Last 24 Hr 96.5 F-97.7 F 66-79 14-18 97-142/46-69 93-97 Result/EKG - Labs CBC & BMP: 03/31/17 Unknown 03/31/17 Unknown Labs: Laboratory Results - last 24 hr 03/26/17 03/30/17 03/31/17 10:31 09:01 Unknown WBC 9.0 RBC 3.18 L Hgb 10.1 L Hct 30.4 L MCV 95.6 MCH 32 MCHC 33.2 RDW 13.4 Plt Count 129 L MPV 11.9 Neut % (Auto) 70.8 Lymph % (Auto) 19.3 L [place] % (Auto) 5.7 Eos % (Auto) 3.5 Baso % (Auto) 0.4 Neut # (Auto) 6.4 Lymph # (Auto) 1.7 [place] # (Auto) 0.5 Eos # (Auto) 0.3 Baso # (Auto) 0.0 Immature Gran % 0.3 Nucleated RBC % 0.0 Immature Gran # 0.03 Nucleated RBCs # 0.00 Immature Plt Fraction 0.0 Sodium Potassium Chloride Carbon Dioxide Anion Gap BUN Creatinine GFR Calculation BUN/Creatinine Ratio Glucose POC Glucose 163 H Calculated Osmolality Calcium Magnesium Total Bilirubin Direct Bilirubin Indirect Bilirubin AST ALT Alkaline Phosphatase Total Creatine Kinase CK-MB (CK-2) Troponin I Total Protein Albumin Globulin Albumin/Globulin Ratio Crossmatch See Detail 03/31/17 Unknown WBC RBC Hgb Hct MCV MCH MCHC RDW Plt Count MPV Neut % (Auto) Lymph % (Auto) [place] % (Auto) Eos % (Auto) Baso % (Auto) Neut # (Auto) Lymph # (Auto) [place] # (Auto) Eos # (Auto) Baso # (Auto) Immature Gran % Nucleated RBC % Immature Gran # Nucleated RBCs # Immature Plt Fraction Sodium 143 Potassium 4.2 Chloride 108 H Carbon Dioxide 29 Anion Gap 10.2 BUN 29 H Creatinine 0.70 GFR Calculation 123 BUN/Creatinine Ratio 41.00 H Glucose 83 POC Glucose Calculated Osmolality 289.0 Calcium 8.3 L Magnesium 2.3 Total Bilirubin 0.60 Direct Bilirubin 0.110 Indirect Bilirubin 0.5 AST 19 ALT 21 Alkaline Phosphatase 73 Total Creatine Kinase 117 D CK-MB (CK-2) 1.4 Troponin I 0.147 H D Total Protein 5.6 L Albumin 3.3 L Globulin 2.3 Albumin/Globulin Ratio 1.4 Crossmatch Quality Measures - VTE Contraindication to Pharmacological VTE Prophylaxis: High Risk of Bleeding Specialty Discharge - Follow Up or Referrals
[2017-03-31] MEDS: CHOLECALCIFEROL 1,000 UNIT TABLET PO SCH (08:58)
[2017-03-31] MEDS: FERROUS SULFATE 325 MG TABLET PO SCH (08:58)
[2017-03-31] MEDS: DOCUSATE SODIUM 100 MG CAPSULE PO SCH (08:58)
[2017-03-31] MEDS: AMIODARONE 200 MG TABLET PO SCH ×2 (08:58→21:32)
[2017-03-31] MEDS: MULTIVITAMIN (CENTRUM) TABLET PO SCH (08:58)
[2017-03-31] MEDS: PANTOPRAZOLE 40 MG TABLET PO SCH (08:59)
[2017-03-31] MEDS: ASPIRIN EC 81 MG TABLET PO SCH (08:59)
[2017-03-31] MEDS: ALLOPURINOL 100 MG TABLET PO SCH (08:59)
[2017-03-31] MEDS: CHLORHEXIDINE 0.12% ORAL RINSE 60 ML BOTTLE SWISH/SPIT SCH ×2 (09:00→21:32)
--- NOTE | 2017-03-31 09:15 | XRay Report ---
History: Shortness of breath Date: 03/31/2017 Study: Chest x-ray AP portable Comparison exam: 03/30/2017 There is continued mild cardiomegaly. The mediastinal contours are unchanged in this patient status post prior median sternotomy. There is some mild subsegmental atelectasis in the lung bases. There is no obvious new or worsening infiltrate. There is no evidence of a pneumothorax. There is stable trace left pleural effusion. Osseous structures are similar. Impression: No gross change from the previous study PROCEDURE INTERPRETED AT [facility] DEPARTMENT OF RADIOLOGY Final Report Signed by: Dr. Muriel Marquez
[2017-03-31] MEDS: CITALOPRAM 20 MG TABLET PO SCH (21:32)
[2017-03-31] MEDS: ATORVASTATIN 10 MG TABLET PO SCH (21:32)
[2017-04-01] MEDS: KETOROLAC 30 MG/1 ML VIAL IV SCH ×3 (01:33→13:53)
[2017-04-01] MEDS: LEVOTHYROXINE 88 MCG TABLET PO SCH (06:12)
[2017-04-01] MEDS: MORPHINE ER 30 MG TABLET PO SCH ×3 (06:12→21:15)
--- NOTE | 2017-04-01 08:42 | Cardiothoracic Progress Note ---
Cardiothoracic Subjective Interval history: Patient looks and feels better. Vital signs have been stable and she is breathing comfortably. She is ambulating with minimal assistance. We will try to increase her activities as tolerated and her pacing wires have been removed. She may be ready for discharge in the morning. Exam (Progress Note) - Constitutional Vitals: Period Temp Pulse Resp BP Sys/Raya Pulse Ox Last 24 Hr 96.8 F-97.9 F 67-77 18-20 120-170/58-77 94-98 Result/EKG - Labs CBC & BMP: 03/31/17 Unknown 03/31/17 Unknown Labs: Laboratory Results - last 24 hr 04/01/17 07:49 POC Glucose 128 H Quality Measures - VTE Contraindication to Pharmacological VTE Prophylaxis: High Risk of Bleeding Specialty Discharge - Follow Up or Referrals
[2017-04-01] MEDS: MULTIVITAMIN (CENTRUM) TABLET PO SCH (09:00)
[2017-04-01] MEDS: CHOLECALCIFEROL 1,000 UNIT TABLET PO SCH (09:00)
[2017-04-01] MEDS: FERROUS SULFATE 325 MG TABLET PO SCH (09:00)
[2017-04-01] MEDS: AMIODARONE 200 MG TABLET PO SCH ×2 (09:00→21:15)
[2017-04-01] MEDS: DOCUSATE SODIUM 100 MG CAPSULE PO SCH (09:00)
[2017-04-01] MEDS: ALLOPURINOL 100 MG TABLET PO SCH (09:00)
[2017-04-01] MEDS: PANTOPRAZOLE 40 MG TABLET PO SCH (09:00)
[2017-04-01] MEDS: ASPIRIN EC 81 MG TABLET PO SCH (09:00)
[2017-04-01] MEDS: CHLORHEXIDINE 0.12% ORAL RINSE 60 ML BOTTLE SWISH/SPIT SCH ×2 (10:35→21:15)
[2017-04-01] MEDS: CITALOPRAM 20 MG TABLET PO SCH (21:15)
[2017-04-01] MEDS: ATORVASTATIN 10 MG TABLET PO SCH (21:15)
[2017-04-02 05:02] LABS: Basophils % 0.4 % (0.0-0.8); Eosinophils # 0.3 10*3/uL (0.0-0.87); Eosinophils % 3.3 % (0.00-10.9); Hemoglobin 10.3 GM/DL (12.0-16.0); Immature Granulocytes % 0.4 %; Immature Granulocytes Absolute 0.04 #; Lymphocytes # 1.5 10*3/uL (1.4-4.0); Lymphocytes % 16.2 % (21.3-54.2); Mean Corpuscular HGB Conc 34.3 GM/DL (32-36); Mean Corpuscular Hemoglobin 32 PG (27-34); Mean Platelet Volume 11.2 FL (9.6-12.0); Monocytes # 0.5 10*3/uL (0.11-0.8); Monocytes % 5.4 % (1.7-12.7); Neutrophils % 74.3 % (38.7-73.9); Platelet Count 189 T/CUMM (130-400); Red Blood Count 3.19 MC/CUMM (3.8-5.5); Red Cell Distribution Width 13.2 % (9.3-17.3); White Blood Count 9.5 T/CUMM (4-12)
[2017-04-02 05:35] LABS: Alanine Aminotransferase 20 U/L (13-56); Alkaline Phosphatase 80 U/L (45-117); Aspartate Amino Transferase 21 U/L (0-37); Bilirubin,Indirect 0.8 MG/DL (0.0-1.0); Blood Urea Nitrogen 17 MG/DL (7-18); Calcium 8.8 MG/DL (8.5-10.1); Glucose 84 MG/DL (74-106); Magnesium 2.2 MG/DL (1.8-2.4); Osmolality,Calculated 286.8 MOS/KG (273-304); Potassium 4.1 MMOL/L (3.5-5.1); Sodium 144 MMOL/L (136-145); Total Protein 5.9 G/DL (6.4-8.3)
[2017-04-02 05:37] LABS: Troponin I Only 0.056 NG/ML (0.00-0.045)
[2017-04-02] MEDS: LEVOTHYROXINE 88 MCG TABLET PO SCH (06:01)
[2017-04-02] MEDS: MORPHINE ER 30 MG TABLET PO SCH ×3 (06:02→22:22)
--- NOTE | 2017-04-02 08:04 | Cardiothoracic Progress Note ---
Cardiothoracic Subjective Interval history: Patient had an uncomfortable night. She could not get comfortable in her bed and slept much of the time in the recliner. She says that her breathing was short last night but her chest x-ray this morning looks remarkably clear. I think we will plan to watch her at least another 24 hours and encourage her to increase her activity some but overall I think her progress is okay and that she may be able to leave in the morning. Exam (Progress Note) - Constitutional Vitals: Period Temp Pulse Resp BP Sys/Raya Pulse Ox Last 24 Hr 96.2 F-97.6 F 70-85 18-20 134-198/58-90 94-98 Result/EKG - Labs CBC & BMP: 04/02/17 04:00 04/02/17 04:00 Labs: Laboratory Results - last 24 hr 04/01/17 04/01/17 04/01/17 07:49 11:59 16:19 WBC RBC Hgb Hct MCV MCH MCHC RDW Plt Count MPV Neut % (Auto) Lymph % (Auto) [place] % (Auto) Eos % (Auto) Baso % (Auto) Neut # (Auto) Lymph # (Auto) [place] # (Auto) Eos # (Auto) Baso # (Auto) Immature Gran % Nucleated RBC % Immature Gran # Nucleated RBCs # Immature Plt Fraction Sodium Potassium Chloride Carbon Dioxide Anion Gap BUN Creatinine GFR Calculation BUN/Creatinine Ratio Glucose POC Glucose 128 H 122 H 106 Calculated Osmolality Calcium Magnesium Total Bilirubin Direct Bilirubin Indirect Bilirubin AST ALT Alkaline Phosphatase Total Creatine Kinase CK-MB (CK-2) Troponin I Total Protein Albumin Globulin Albumin/Globulin Ratio 04/02/17 04/02/17 04:00 04:00 WBC 9.5 RBC 3.19 L Hgb 10.3 L Hct 30.0 L MCV 94.0 MCH 32 MCHC 34.3 RDW 13.2 Plt Count 189 D MPV 11.2 Neut % (Auto) 74.3 H Lymph % (Auto) 16.2 L [place] % (Auto) 5.4 Eos % (Auto) 3.3 Baso % (Auto) 0.4 Neut # (Auto) 7.0 Lymph # (Auto) 1.5 [place] # (Auto) 0.5 Eos # (Auto) 0.3 Baso # (Auto) 0.0 Immature Gran % 0.4 Nucleated RBC % 0.0 Immature Gran # 0.04 Nucleated RBCs # 0.00 Immature Plt Fraction 0.0 Sodium 144 Potassium 4.1 Chloride 106 Carbon Dioxide 28 Anion Gap 14.1 BUN 17 Creatinine 0.50 L GFR Calculation 137 BUN/Creatinine Ratio 34.00 H Glucose 84 POC Glucose Calculated Osmolality 286.8 Calcium 8.8 Magnesium 2.2 Total Bilirubin 1.00 Direct Bilirubin 0.230 H Indirect Bilirubin 0.8 AST 21 ALT 20 Alkaline Phosphatase 80 Total Creatine Kinase 66 D CK-MB (CK-2) 1.4 Troponin I 0.056 H D Total Protein 5.9 L Albumin 3.0 L Globulin 2.9 Albumin/Globulin Ratio 1.0 L Quality Measures - VTE Contraindication to Pharmacological VTE Prophylaxis: High Risk of Bleeding Specialty Discharge - Follow Up or Referrals
[2017-04-02] MEDS: PANTOPRAZOLE 40 MG TABLET PO SCH (08:10)
[2017-04-02] MEDS: AMIODARONE 200 MG TABLET PO SCH ×2 (08:10→20:34)
[2017-04-02] MEDS: CHOLECALCIFEROL 1,000 UNIT TABLET PO SCH (08:10)
[2017-04-02] MEDS: ALLOPURINOL 100 MG TABLET PO SCH (08:10)
[2017-04-02] MEDS: DOCUSATE SODIUM 100 MG CAPSULE PO SCH (08:10)
[2017-04-02] MEDS: MULTIVITAMIN (CENTRUM) TABLET PO SCH (08:10)
[2017-04-02] MEDS: ASPIRIN EC 81 MG TABLET PO SCH (08:10)
[2017-04-02] MEDS: FERROUS SULFATE 325 MG TABLET PO SCH (08:10)
[2017-04-02] MEDS: CHLORHEXIDINE 0.12% ORAL RINSE 60 ML BOTTLE SWISH/SPIT SCH ×2 (08:16→20:38)
--- NOTE | 2017-04-02 08:50 | XRay Report ---
2 view chest Indication: Shortness of breath Comparison: March 31, 2017 at 0610 hours Findings: Cardiomediastinal contours are stable with sternotomy wires and midline and no change in central venous catheter placement. Small left residual pleural effusion, with improved interstitial pattern. No acute osseous abnormalities. Visualized upper abdomen demonstrates no acute pathology. Impression: Improved interstitial pattern with small residual left pleural effusion PROCEDURE INTERPRETED AT [facility] DEPARTMENT OF RADIOLOGY Final Report Signed by: Ella Remy MD
[2017-04-02] MEDS: ATORVASTATIN 10 MG TABLET PO SCH (20:33)
[2017-04-02] MEDS: CITALOPRAM 20 MG TABLET PO SCH (20:34)
[2017-04-03 05:46] LABS: Basophils # 0.1 10*3/uL (0.0-0.2); Basophils % 0.5 % (0.0-0.8); Eosinophils # 0.3 10*3/uL (0.0-0.87); Eosinophils % 2.9 % (0.00-10.9); Hematocrit 30.9 VOL% (35.7-47.0); Hemoglobin 10.8 GM/DL (12.0-16.0); Immature Granulocytes % 0.6 %; Immature Granulocytes Absolute 0.06 #; Lymphocytes # 1.5 10*3/uL (1.4-4.0); Lymphocytes % 14.8 % (21.3-54.2); Mean Corpuscular Hemoglobin 33 PG (27-34); Mean Corpuscular Volume 95.1 FL (87-102); Mean Platelet Volume 11.1 FL (9.6-12.0); Monocytes # 0.7 10*3/uL (0.11-0.8); Monocytes % 6.5 % (1.7-12.7); Neutrophils # 7.6 10*3/uL (1.4-7.4); Neutrophils % 74.7 % (38.7-73.9); Platelet Count 203 T/CUMM (130-400); Red Blood Count 3.25 MC/CUMM (3.8-5.5); Red Cell Distribution Width 13.1 % (9.3-17.3); White Blood Count 10.2 T/CUMM (4-12)
[2017-04-03 06:22] LABS: Alanine Aminotransferase 20 U/L (13-56); Albumin 3.1 G/DL (3.4-5.0); Alkaline Phosphatase 81 U/L (45-117); Aspartate Amino Transferase 23 U/L (0-37); Bilirubin,Indirect 0.6 MG/DL (0.0-1.0); Blood Urea Nitrogen 12 MG/DL (7-18); Calcium 8.8 MG/DL (8.5-10.1); Glucose 87 MG/DL (74-106); Osmolality,Calculated 279.3 MOS/KG (273-304); Potassium 3.9 MMOL/L (3.5-5.1); Sodium 141 MMOL/L (136-145)
[2017-04-03] MEDS: MORPHINE ER 30 MG TABLET PO SCH (06:25)
[2017-04-03] MEDS: LEVOTHYROXINE 88 MCG TABLET PO SCH (06:26)
--- NOTE | 2017-04-03 06:37 | Discharge Summary ---
Hospital Course - Hospital Course Hospital Course: History of present illness: Patient is a 61-year-old lady who presented to [facility] with recent onset of substernal chest pain fairly typical of angina. 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 Attempts at percutaneous angioplasty were unsuccessful and the patient was referred for bypass surgery. Past medical history review of systems social history and family history are documented in her admission note. Hospital course: The patient was taken to surgery where single vein graft was placed to the right coronary artery without incident. Patient's postoperative course was essentially uncomplicated and she was discharged home with instructions to return for follow-up in 1 month. Discharge medications are listed below. Specialty Discharge - Follow Up or Referrals Follow up with: Howie Brambila MD [Physician] - 1 Month Discharge Plan - Discharge Data Disposition: Disch To Home/Self Care Condition at Discharge: Stable Discharge Diet: advance to your usual diet Activity: resume usual activities as tolerated Hygiene: no restrictions Weight Bearing at Discharge: full weight bearing Driving: not for (2 weeks) - Discharge Medications New Amiodarone Tab [Cordarone Tab] 200 mg PO BID #60 tablet Continue Allopurinol 100 mg PO DAILY Levothyroxine Tab [Synthroid Tab] 44 mcg PO DAILY@0700 Morphine ER Tab [Ms Contin] 30 mg PO TID Cetirizine HCl [ZyrTEC Cap] 10 mg PO DAILY Cholecalciferol (Vitamin D3) [Vitamin D3] 2,000 unit PO DAILY Multivitamin [Multivitamins] 1 each PO DAILY Docusate Sodium [Colace Clear] 50 mg PO BID Citalopram [CeleXA] 10 mg PO BEDTIME Tizanidine HCl [Zanaflex] 2 mg PO BEDTIME PRN PRN Reason: pain diphenhydrAMINE CAP [Benadryl Cap] 25 mg PO BEDTIME PRN PRN Reason: cramp Lisinopril 20 mg PO DAILY Gabapentin Cap/Tab [Neurontin Cap/Tab] 600 mg PO QID Aspirin 81 mg PO DAILY Lovastatin 20 mg PO BEDTIME - Follow Up or Referral - Forms/Instructions Instructions: Heart Healthy Diet (GEN), Coronary Artery Bypass Graft, Bowling Ball Marker (GEN), Sternal Precautions (GEN) Exam - Constitutional Vitals: Period Temp Pulse Resp BP Sys/Raya Pulse Ox Last 24 Hr 97.4 F-98.6 F 72-81 16-18 159-187/71-88 92-96 Discharge Results Procedures and tests throughout hospitalization: Pending Orders 03/26/17 10:31 Fresh Frozen Plasma Routine Red Blood Cells Leuko Red Routine Single Donor Platelets Routine Type and Screen Routine 04/03/17 04:00 XR chest 2V IN AM Labs on day of discharge: Labs from last 24 hours 04/03/17 04/03/17 04:08 04:08 WBC 10.2 RBC 3.25 L Hgb 10.8 L Hct 30.9 L MCV 95.1 MCH 33 MCHC 35.0 RDW 13.1 Plt Count 203 MPV 11.1 Neut % (Auto) 74.7 H Lymph % (Auto) 14.8 L [place] % (Auto) 6.5 Eos % (Auto) 2.9 Baso % (Auto) 0.5 Neut # (Auto) 7.6 H Lymph # (Auto) 1.5 [place] # (Auto) 0.7 Eos # (Auto) 0.3 Baso # (Auto) 0.1 Immature Gran % 0.6 Nucleated RBC % 0.0 Immature Gran # 0.06 Nucleated RBCs # 0.00 Immature Plt Fraction 0.0 Sodium 141 Potassium 3.9 Chloride 104 Carbon Dioxide 28 Anion Gap 12.9 BUN 12 Creatinine 0.50 L GFR Calculation 137 BUN/Creatinine Ratio 24.00 H Glucose 87 Calculated Osmolality 279.3 Calcium 8.8 Magnesium 2.0 Total Bilirubin 0.80 Direct Bilirubin 0.230 H Indirect Bilirubin 0.6 AST 23 ALT 20 Alkaline Phosphatase 81 Total Creatine Kinase 56 CK-MB (CK-2) < 1.0 Troponin I 0.040 Total Protein 6.0 L Albumin 3.1 L Globulin 2.9 Albumin/Globulin Ratio 1.0 L DS: Provider Date of admission: 03/23/17 13:35 Primary care physician: Frank Del Angel Attending physician on admission: Howie Brambila MD Consults: 03/23/17 09:47 Consult to Dietitian [CONS] Routine Reason for Dietitian: Other Consult Comment: low salt, low cholesterol, diet 03/29/17 19:53 Consult to Cardiac Rehabilitation [CONS] Routine Reason for Cardiac Rehabilitation: Other Consult Comment: Post CABG/heart surgery Consult to [facility], Educator [CONS] Routine 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
[2017-04-03 07:48] VITALS: BP 167/74
[2017-04-03] MEDS: ASPIRIN EC 81 MG TABLET PO SCH (08:24)
[2017-04-03] MEDS: CHOLECALCIFEROL 1,000 UNIT TABLET PO SCH (08:24)
[2017-04-03] MEDS: MULTIVITAMIN (CENTRUM) TABLET PO SCH (08:25)
[2017-04-03] MEDS: FERROUS SULFATE 325 MG TABLET PO SCH (08:25)
[2017-04-03] MEDS: PANTOPRAZOLE 40 MG TABLET PO SCH (08:25)
[2017-04-03] MEDS: AMIODARONE 200 MG TABLET PO SCH (08:25)
[2017-04-03] MEDS: ALLOPURINOL 100 MG TABLET PO SCH (08:25)
[2017-04-03] MEDS: DOCUSATE SODIUM 100 MG CAPSULE PO SCH (08:25)
[2017-04-03] MEDS: CHLORHEXIDINE 0.12% ORAL RINSE 60 ML BOTTLE SWISH/SPIT SCH (08:27)
--- NOTE | 2017-04-03 08:56 | XRay Report ---
XR chest 2V Date: 04/03/2017 4:00 AM History: Shortness of breath Comparison: 04/02/2017 Technique: PA and lateral chest Findings: The heart is normal in size with calcification in the wall of the tortuous aorta. Status post median sternotomy with stable right IJ CVP line. Progressive parenchymal findings at the lung bases with small pleural effusions. Stable mediastinum and osseous structures. Impression: Status post median sternotomy with progressive atelectasis/edema at the lung bases with small pleural effusions. PROCEDURE INTERPRETED AT [facility] DEPARTMENT OF RADIOLOGY Final Report Signed by: Dr. Rosmery Segovia
--- NOTE | 2017-04-03 13:41 | Order Completion Report ---
See report scanned to EMR
== END 2017-04-03 12:16 | disposition home or self-care (01) | DRG 236 ==
LOC: N.TELES 13:35 → N.CVR 03-27 08:37 → N.ICU 03-28 14:32 → N.TELES 03-30 18:42

== ENCOUNTER 2019-04-23 00:36 | Observation (INO) ==
[2019-04-23] MEDS ORDERED: FUROSEMIDE 100 MG/10 ML VIAL IV STA (01:01)
[2019-04-23] MEDS ORDERED: MORPHINE 4 MG/1 ML VIAL IV STA (01:01)
[2019-04-23] MEDS ORDERED: methylPREDNISolone SOD SUC 125 MG/2 ML VIAL IV STA (01:01)
[2019-04-23] MEDS ORDERED: ONDANSETRON 4 MG/2 ML VIAL IV STA (01:01)
[2019-04-23 01:26] LABS: ABG Base Excess 3.8 MMOL/L (-2.5-2.5); ABG HCO3 27.6 MMOL/L (20-26); ABG Oxygen Saturation 90.2 % (95-100); ABG PCO2 46.3 MM HG (35-48); ABG PH 7.409 (7.35-7.45); ABG PO2 61.1 MM HG (80-95); ABG TCO2 25.6 MMOL/L (23-27); Allen Test Positive
[2019-04-23 01:27] LABS: Basophils # 0.1 10*3/uL (0.0-0.2); Basophils % 0.6 % (0.0-0.8); Eosinophils # 0.3 10*3/uL (0.0-0.87); Eosinophils % 3.3 % (0.00-10.9); Hematocrit 39.7 VOL% (35.7-47.0); Hemoglobin 13.5 GM/DL (12.0-16.0); Immature Granulocytes % 0.6 %; Immature Granulocytes Absolute 0.06 #; Lymphocytes # 1.2 10*3/uL (1.4-4.0); Lymphocytes % 11.7 % (21.3-54.2); Mean Corpuscular Volume 99.7 FL (87-102); Mean Platelet Volume 10.1 FL (9.6-12.0); Monocytes % 7.6 % (1.7-12.7); Neutrophils % 76.2 % (38.7-73.9); Platelet Count 234 T/CUMM (130-400); Red Blood Count 3.98 MC/CUMM (3.8-5.5); Red Cell Distribution Width 12.3 % (9.3-17.3); White Blood Count 10.4 T/CUMM (4-12)
[2019-04-23 01:29] LABS: Alanine Aminotransferase 18 U/L (13-56); Albumin 2.9 G/DL (3.4-5.0); Alkaline Phosphatase 120 U/L (45-117); Aspartate Amino Transferase 22 U/L (0-37); Bilirubin,Total < 0.39 MG/DL (0.2-1.0); Blood Urea Nitrogen 11 MG/DL (7-18); Calcium 8.9 MG/DL (8.5-10.1); Estimated Glom Filtration Rate 134 ML/MIN; Glucose 75 MG/DL (74-106); Osmolality,Calculated 278.3 MOS/KG (273-304); Total Protein 7.6 G/DL (6.4-8.3); Troponin I < 0.015 NG/ML (0.00-0.045)
[2019-04-23] MEDS ORDERED: ALBUTEROL NEB SOLN 5 MG/ML 20 ML/BOTTLE RESP TX SCH (01:30)
[2019-04-23 01:33] LABS: PT Patient Result 10.6 SECS (9.6-12.2)
[2019-04-23] MEDS ORDERED: MAGNESIUM SULF RIDER 2 GM in PREMIX 1 EACH IV STA (01:36)
[2019-04-23 02:23] LABS: Apearance,Urine CLEAR (Clear); Bilirubin,Urine Negative (Negative); Blood, Urine Negative (Negative); Glucose,Urine (UA) Negative (Negative); Ketones,Urine Negative (Negative); Mucus,Urine Occasional /LPF (Occasional); Nitrite,Urine Negative (Negative); Protein,Urine Negative; RBC,Urine 2 /HPF (0-4); Squamous Epithelial Cell,Urine Occasional /HPF (0-10); Urine Color Straw (Yellow); Urine Specific Gravity 1.008 (1.001-1.035); Urine Urobilinogen < 2.0 EU/DL (0.2-1.0); WBC,Urine 1 /HPF (0-6)
[2019-04-23] MEDS ORDERED: ONDANSETRON 4 MG/2 ML VIAL IV PRN (04:07)
[2019-04-23] MEDS ORDERED: MAGNESIUM SULF RIDER 4 GM in PREMIX 1 EACH IV PRN (04:07)
[2019-04-23] MEDS ORDERED: MAGNESIUM SULF RIDER 2 GM in PREMIX 1 EACH IV PRN (04:07)
[2019-04-23] MEDS ORDERED: guaiFENesin/DM ER 600-30 MG TABLET PO PRN (04:07)
[2019-04-23] MEDS: POTASSIUM CHLORIDE 20 MEQ TABLET PO PRN ×3 (06:06→09:45)
[2019-04-23] MEDS: MORPHINE 4 MG/1 ML VIAL IV PRN ×3 (06:07→15:01)
[2019-04-23 06:37] LABS: Risk Ratio 1.68; Thyroid Stimulating Hormone 0.192 uIU/ml (0.358-3.74); VLDL CHOLESTEROL 10.4 MG/DL
[2019-04-23] MEDS: methylPREDNISolone SOD SUC 40 MG/1 ML VIAL IV SCH ×2 (06:41→21:02)
[2019-04-23] MEDS: ALBUTEROL/IPRATROPIUM 3 ML NEB RESP TX SCH ×3 (07:09→19:01)
[2019-04-23] MEDS: FUROSEMIDE 20 MG/2 ML VIAL IV SCH ×2 (07:49→15:24)
[2019-04-23 07:58] LABS: Pt O2 Delivery Device Other
[2019-04-23 07:59] LABS: ABG Base Excess 3.4 MMOL/L (-2.5-2.5); ABG HCO3 27.3 MMOL/L (20-26); ABG Oxygen Saturation 92.8 % (95-100); ABG PH 7.393 (7.35-7.45); ABG PO2 69.2 MM HG (80-95); ABG TCO2 25.5 MMOL/L (23-27)
[2019-04-23] MEDS ORDERED: tiZANidine 4 MG TABLET PO PRN (15:00)
[2019-04-23] MEDS: MORPHINE ER 30 MG TABLET PO SCH ×2 (15:20→21:01)
[2019-04-23] MEDS: ASCORBIC ACID 500 MG TABLET PO SCH ×2 (15:21→21:02)
[2019-04-23] MEDS: AZITHROMYCIN INJ 500 MG in SODIUM CHLORIDE 0.9% 250 ML IV SCH (15:23)
[2019-04-23] MEDS ORDERED: GABAPENTIN 600 MG TABLET PO SCH (17:00)
[2019-04-23] MEDS: GABAPENTIN 600 MG TABLET PO SCH (21:01)
[2019-04-23] MEDS: CITALOPRAM 20 MG TABLET PO SCH (21:01)
[2019-04-23] MEDS: CETIRIZINE 10 MG TABLET PO SCH (21:02)
[2019-04-23] MEDS: SIMVASTATIN 10 MG TABLET PO SCH (21:02)
[2019-04-23] MEDS: traZODone 50 MG TABLET PO PRN (21:02)
[2019-04-23] MEDS: DOCUSATE/SENNA 50-8.6 MG TABLET PO SCH (23:22)
[2019-04-24] MEDS: ALBUTEROL/IPRATROPIUM 3 ML NEB RESP TX SCH ×4 (00:21→19:44)
[2019-04-24 04:35] LABS: Hematocrit 38.7 VOL% (35.7-47.0); Hemoglobin 12.2 GM/DL (12.0-16.0); Immature Granulocytes % 0.6 %; Immature Granulocytes Absolute 0.07 #; Lymphocytes # 0.7 10*3/uL (1.4-4.0); Lymphocytes % 5.9 % (21.3-54.2); Mean Corpuscular HGB Conc 31.5 GM/DL (32-36); Mean Corpuscular Volume 100.5 FL (87-102); Monocytes % 2.6 % (1.7-12.7); Neutrophils % 90.9 % (38.7-73.9); Platelet Count 234 T/CUMM (130-400); Red Blood Count 3.85 MC/CUMM (3.8-5.5); Red Cell Distribution Width 12.5 % (9.3-17.3); White Blood Count 12.1 T/CUMM (4-12)
[2019-04-24 04:55] LABS: Hypochromasia 1+; Lymphocytes 9 % (20-55); Platelet Estimate Adequate; Segmented Neutrophils 88 % (50-85); Total Cells Counted 100
[2019-04-24 05:00] LABS: Albumin 2.6 G/DL (3.4-5.0); Bilirubin,Total 0.4 MG/DL (0.2-1.0); Calcium 9.1 MG/DL (8.5-10.1); Osmolality,Calculated 283.4 MOS/KG (273-304); Total Protein 7.1 G/DL (6.4-8.3)
[2019-04-24] MEDS: LEVOTHYROXINE 88 MCG TABLET PO SCH (06:21)
[2019-04-24] MEDS: GABAPENTIN 600 MG TABLET PO SCH ×3 (06:21→21:30)
[2019-04-24] MEDS: ASCORBIC ACID 500 MG TABLET PO SCH ×3 (09:23→21:30)
[2019-04-24] MEDS: LISINOPRIL 20 MG TABLET PO SCH (09:24)
[2019-04-24] MEDS: FERROUS SULFATE 325 MG TABLET PO SCH (09:24)
[2019-04-24] MEDS: MORPHINE ER 30 MG TABLET PO SCH ×3 (09:24→21:30)
[2019-04-24] MEDS: MULTIVITAMIN (CENTRUM) TABLET PO SCH (09:24)
[2019-04-24] MEDS: CHOLECALCIFEROL 1,000 UNIT TABLET PO SCH (09:24)
[2019-04-24] MEDS: ASPIRIN CHEW 81 MG TABLET PO SCH (09:24)
[2019-04-24] MEDS: ALLOPURINOL 100 MG TABLET PO SCH (09:25)
[2019-04-24] MEDS: AZITHROMYCIN INJ 500 MG in SODIUM CHLORIDE 0.9% 250 ML IV SCH (09:28)
[2019-04-24] MEDS: methylPREDNISolone SOD SUC 40 MG/1 ML VIAL IV SCH ×2 (09:30→21:30)
[2019-04-24] MEDS: FUROSEMIDE 20 MG/2 ML VIAL IV SCH ×2 (09:35→15:54)
[2019-04-24] MEDS: DOCUSATE/SENNA 50-8.6 MG TABLET PO SCH ×3 (10:07→21:30)
[2019-04-24] MEDS: CETIRIZINE 10 MG TABLET PO SCH (21:30)
[2019-04-24] MEDS: CITALOPRAM 20 MG TABLET PO SCH (21:30)
[2019-04-24] MEDS: SIMVASTATIN 10 MG TABLET PO SCH (21:30)
[2019-04-25] MEDS: ALBUTEROL/IPRATROPIUM 3 ML NEB RESP TX SCH ×2 (00:06→07:00)
[2019-04-25] MEDS: traZODone 50 MG TABLET PO PRN (00:17)
[2019-04-25] MEDS: GABAPENTIN 600 MG TABLET PO SCH (06:20)
[2019-04-25] MEDS: LEVOTHYROXINE 88 MCG TABLET PO SCH (06:20)
[2019-04-25] MEDS: LISINOPRIL 20 MG TABLET PO SCH (08:46)
[2019-04-25] MEDS: ASPIRIN CHEW 81 MG TABLET PO SCH (08:46)
[2019-04-25] MEDS: CHOLECALCIFEROL 1,000 UNIT TABLET PO SCH (08:46)
[2019-04-25] MEDS: MORPHINE ER 30 MG TABLET PO SCH (08:47)
[2019-04-25] MEDS: FERROUS SULFATE 325 MG TABLET PO SCH (08:47)
[2019-04-25] MEDS: ALLOPURINOL 100 MG TABLET PO SCH (08:47)
[2019-04-25] MEDS: ASCORBIC ACID 500 MG TABLET PO SCH (08:47)
[2019-04-25] MEDS: DOCUSATE/SENNA 50-8.6 MG TABLET PO SCH (08:48)
[2019-04-25] MEDS: FUROSEMIDE 20 MG/2 ML VIAL IV SCH (08:50)
[2019-04-25] MEDS: AZITHROMYCIN INJ 500 MG in SODIUM CHLORIDE 0.9% 250 ML IV SCH (08:53)
[2019-04-25] MEDS: methylPREDNISolone SOD SUC 40 MG/1 ML VIAL IV SCH (08:53)
[2019-04-25] MEDS: MULTIVITAMIN (CENTRUM) TABLET PO SCH (09:42)
[2019-04-25 12:13] VITALS: BP 173/79
== END 2019-04-25 12:52 | disposition home health service (06) ==
LOC: N.EDINP 00:36 → N.ED 00:36 → N.ICU 05:20 → N.2E 10:59
PROVIDERS: ADMIT Internal Medicine; ATTEND Internal Medicine

== ENCOUNTER 2019-07-09 20:04 | Inpatient (IN) ==
[2019-07-09 20:53] LABS: Basophils # 0.1 10*3/uL (0.0-0.2); Basophils % 0.9 % (0.0-0.8); Eosinophils # 0.2 10*3/uL (0.0-0.87); Eosinophils % 2.1 % (0.00-10.9); Hematocrit 38.3 VOL% (35.7-47.0); Hemoglobin 11.8 GM/DL (12.0-16.0); Immature Granulocytes % 0.5 %; Immature Granulocytes Absolute 0.05 #; Lymphocytes % 9.3 % (21.3-54.2); Mean Corpuscular HGB Conc 30.8 GM/DL (32-36); Mean Corpuscular Volume 102.1 FL (87-102); Monocytes % 6.5 % (1.7-12.7); Neutrophils % 80.7 % (38.7-73.9); Platelet Count 185 T/CUMM (130-400); Red Blood Count 3.75 MC/CUMM (3.8-5.5); Red Cell Distribution Width 13.2 % (9.3-17.3); White Blood Count 10.3 T/CUMM (4-12)
[2019-07-09 21:04] LABS: PT Patient Result 10.6 SECS (9.6-12.2)
[2019-07-09 21:22] LABS: Albumin 3.3 G/DL (3.4-5.0); Bilirubin,Total 0.6 MG/DL (0.2-1.0); Calcium 8.5 MG/DL (8.5-10.1); Total Protein 7.7 G/DL (6.4-8.3)
[2019-07-09 21:33] LABS: Apearance,Urine CLOUDY (Clear); Bilirubin,Urine Negative (Negative); Blood, Urine Small mg/dL (Negative); Glucose,Urine (UA) Negative (Negative); Ketones,Urine Negative (Negative); Nitrite,Urine Negative (Negative); Protein,Urine Negative; RBC,Urine 3 /HPF (0-4); Squamous Epithelial Cell,Urine Occasional /HPF (0-10); Urine Color Yellow (Yellow); Urine Specific Gravity 1.015 (1.001-1.035); Urine Urobilinogen < 2.0 EU/DL (0.2-1.0); WBC,Urine 15 /HPF (0-6)
[2019-07-09] MEDS ORDERED: SODIUM CHLORIDE 0.9% 1,000 ML IV STA (21:47)
[2019-07-09] MEDS ORDERED: SODIUM POLYSTYRENE SULFATE 15 GM/60 ML BOTTLE PO STA (21:47)
[2019-07-09] MEDS ORDERED: CALCIUM GLUCONATE 1,000 MG in SODIUM CHLORIDE 0.9% 100 ML IV ONE ×2 (21:47→22:00)
[2019-07-09] MEDS ORDERED: LEVOFLOXACIN INJ 500 MG in PREMIX 1 EACH IV STA (22:03)
[2019-07-09] MEDS ORDERED: ONDANSETRON 4 MG/2 ML VIAL IV PRN (23:54)
[2019-07-10] MEDS: SODIUM CHLORIDE 0.9% 1,000 ML IV SCH ×3 (04:45→21:04)
[2019-07-10] MEDS: ENOXAPARIN 30 MG/0.3 ML SYRINGE SUBCUT SCH (04:45)
[2019-07-10 05:38] LABS: Basophils # 0.1 10*3/uL (0.0-0.2); Basophils % 0.7 % (0.0-0.8); Eosinophils # 0.2 10*3/uL (0.0-0.87); Eosinophils % 3.6 % (0.00-10.9); Hematocrit 32.5 VOL% (35.7-47.0); Hemoglobin 10.1 GM/DL (12.0-16.0); Immature Granulocytes % 0.3 %; Immature Granulocytes Absolute 0.02 #; Lymphocytes # 1.3 10*3/uL (1.4-4.0); Lymphocytes % 18.9 % (21.3-54.2); Mean Corpuscular HGB Conc 31.1 GM/DL (32-36); Mean Corpuscular Volume 101.9 FL (87-102); Mean Platelet Volume 10.2 FL (9.6-12.0); Monocytes % 11.8 % (1.7-12.7); Neutrophils % 64.7 % (38.7-73.9); Platelet Count 157 T/CUMM (130-400); Red Blood Count 3.19 MC/CUMM (3.8-5.5); Red Cell Distribution Width 13.2 % (9.3-17.3); White Blood Count 6.7 T/CUMM (4-12)
[2019-07-10 05:59] LABS: Albumin 2.6 G/DL (3.4-5.0); Bilirubin,Total 0.7 MG/DL (0.2-1.0); Calcium 8.1 MG/DL (8.5-10.1); Osmolality,Calculated 287.5 MOS/KG (273-304)
[2019-07-10] MEDS: PANTOPRAZOLE 40 MG TABLET PO SCH (08:55)
[2019-07-10] MEDS: ASCORBIC ACID 500 MG TABLET PO SCH ×3 (10:06→21:06)
[2019-07-10] MEDS: DOCUSATE/SENNA 50-8.6 MG TABLET PO SCH ×2 (10:06→21:17)
[2019-07-10] MEDS: GABAPENTIN 300 MG CAPSULE PO SCH ×4 (10:06→21:05)
[2019-07-10] MEDS: ASPIRIN EC 81 MG TABLET PO SCH (10:06)
[2019-07-10] MEDS: MULTIVITAMIN (CENTRUM) TABLET PO SCH (10:06)
[2019-07-10] MEDS: MORPHINE ER 30 MG TABLET PO SCH ×3 (10:06→21:06)
[2019-07-10] MEDS: CHOLECALCIFEROL 1,000 UNIT TABLET PO SCH (10:06)
[2019-07-10] MEDS: cefTRIAXone 1,000 MG in SYRINGE 1 EACH IV SCH (11:52)
[2019-07-10] MEDS ORDERED: PHENOL 1.4% THROAT SPRAY 177 ML BOTTLE PO PRN (18:03)
[2019-07-10] MEDS ORDERED: CETIRIZINE 10 MG TABLET PO SCH (21:00)
[2019-07-10] MEDS ORDERED: CITALOPRAM 40 MG TABLET PO SCH (21:00)
[2019-07-11] MEDS: SODIUM CHLORIDE 0.9% 1,000 ML IV SCH (05:05)
[2019-07-11] MEDS ORDERED: LEVOTHYROXINE 88 MCG TABLET PO SCH (06:30)
[2019-07-11 06:38] LABS: Basophils # 0.1 10*3/uL (0.0-0.2); Eosinophils # 0.3 10*3/uL (0.0-0.87); Eosinophils % 5.6 % (0.00-10.9); Hematocrit 32.1 VOL% (35.7-47.0); Hemoglobin 9.9 GM/DL (12.0-16.0); Immature Granulocytes % 0.4 %; Immature Granulocytes Absolute 0.02 #; Lymphocytes # 1.1 10*3/uL (1.4-4.0); Lymphocytes % 21.4 % (21.3-54.2); Mean Corpuscular HGB Conc 30.8 GM/DL (32-36); Mean Corpuscular Volume 103.2 FL (87-102); Mean Platelet Volume 10.6 FL (9.6-12.0); Monocytes % 11.6 % (1.7-12.7); Platelet Count 140 T/CUMM (130-400); Red Blood Count 3.11 MC/CUMM (3.8-5.5); Red Cell Distribution Width 13.1 % (9.3-17.3)
[2019-07-11 07:08] LABS: Calcium 8.4 MG/DL (8.5-10.1)
[2019-07-11 07:57] VITALS: BP 127/68
[2019-07-11] MEDS: MULTIVITAMIN (CENTRUM) TABLET PO SCH (08:40)
[2019-07-11] MEDS: MORPHINE ER 30 MG TABLET PO SCH (08:40)
[2019-07-11] MEDS: ASPIRIN EC 81 MG TABLET PO SCH (08:40)
[2019-07-11] MEDS: CHOLECALCIFEROL 1,000 UNIT TABLET PO SCH (08:40)
[2019-07-11] MEDS: DOCUSATE/SENNA 50-8.6 MG TABLET PO SCH (08:41)
[2019-07-11] MEDS: cefTRIAXone 1,000 MG in SYRINGE 1 EACH IV SCH (08:41)
[2019-07-11] MEDS: PANTOPRAZOLE 40 MG TABLET PO SCH (08:41)
[2019-07-11] MEDS: GABAPENTIN 300 MG CAPSULE PO SCH (08:41)
[2019-07-11] MEDS: ASCORBIC ACID 500 MG TABLET PO SCH (08:43)
[2019-07-11] MEDS ORDERED: FERROUS SULFATE ER 140 MG TABLET PO SCH (09:00)
[2019-07-11] MEDS: ENOXAPARIN 30 MG/0.3 ML SYRINGE SUBCUT SCH (10:00)
[2019-07-11] MEDS ORDERED: LEVOFLOXACIN INJ 250 MG in PREMIX 1 EACH IV SCH (21:00)
== END 2019-07-11 11:36 | disposition home health service (06) | DRG 689 ==
LOC: N.ED 20:04 → N.EDINP 23:54 → N.2E 07-10 00:33
PROVIDERS: ADMIT Family Medicine; ATTEND Family Medicine